=== PATIENT | male | born 1935 | race Caucasian/White ===

== ENCOUNTER 2017-01-17 15:42 | Observation (INO) ==
[2017-01-17] MEDS ORDERED: NITROGLYCERIN 0.4 MG SUBLINGUAL TABLET SL PRN (16:03)
--- OUTSIDE RECORDS SUMMARY | 2017-01-17 16:07 | External Medical Summary | Referral Summary ---
:1935 Author Organization [facility] Address [address] [place] [address] [place] [address] Care Team Providers Name Role Phone Cuong Sultana Primary Care Physician Encounter Date(s): 01/23/15 - 01/23/15 [facility] [address] [place] [address] [place] [address] [place] Discharge Diagnosis: Bilateral sensorineural hearing loss Discharge Disposition: 01-Home or Self Care Attending Physician: Bev Maradiaga Admitting Physician: Bev Maradiaga Vital Signs No data available for this section Problem List Condition Effective Dates Status Health Status Informant Acute arthritis(Confirmed)1 05/13/12 Active Skin Condition(Confirmed) Active Rotator cuff tear, right(Confirmed)2 Active Rotator cuff tear, left(Confirmed)3 05/13/12 Active 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) History of varicella(Confirmed) Active Hypertension(Confirmed) Active ED (erectile dysfunction)(Confirmed)4 Active Hepatitis(Confirmed) Active Irregular heart rhythm(Confirmed) Active Jaundice(Confirmed) Active Lumbar post-laminectomy syndrome Active (disorder)(Confirmed) Cancer of skin(Confirmed) Active Osteoarthritis(Confirmed) Active 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) Active Sciatica(Confirmed)6 Active Spinal stenosis of lumbar region Active (disorder)(Confirmed) Long head bicep Tendonitis(Confirmed)7 05/13/12 Active 1Lt Open RTC repair with augmentation with xenograft, arthroscopic glenohumeral debridement, open bicep tenotomy, open distal clavicle jaeyiovg4ldybbdl cuff ztbttn8Od Open RTC repair with augmentation with xenograft, arthroscopic glenohumeral debridement, open bicep tenotomy, open distal clavicle fvwmenqc4Ttn libido, and low kuqhhrpsloyp5wqptu gqqpdzjvqh7okc back ilyytku7In Open RTC repair with augmentation with xenograft, arthroscopic glenohumeral debridement, open bicep tenotomy, open distal clavicle excision Allergies, Adverse Reactions, Alerts Substance Reaction Severity Status ZOLMitriptan Active Medications aspirin 81 mg oral tablet 1 tabs, Oral, Daily, 0 Refill(s) Start Date: 02/15/14 Status: OrderedMultiple Vitamins oral tablet 1 tabs, Oral, Daily, # 90 tabs, 0 Refill(s) Start Date: 09/30/14 Status: OrderedNorvasc 2.5 mg oral tablet 1 tabs, Oral, Daily, # 90 tabs, 0 Refill(s) Start Date: 02/16/14 Status: OrderedPrograf 1 mg oral capsule 2 caps, Oral, BID, 0 Refill(s) Start Date: 02/15/14 Status: OrderedTums mg, Chewed, Daily, 0 Refill(s) Start Date: 09/30/14 Status: OrderedVitamin D3 400 intl units oral tablet 1 tabs, Oral, Daily, 0 Refill(s) Start Date: 02/15/14 Status: Ordered Results No data available for this section Immunizations Vaccine Date Refusal Reason tetanus/diphth/pertuss (Tdap) adult/adol 12/23/12 hepatitis B adult vaccine 08/19/14 hepatitis B adult vaccine 08/19/14 hepatitis B adult vaccine 04/13/14 hepatitis B adult vaccine 04/13/14 hepatitis B adult vaccine 03/16/14 hepatitis B adult vaccine 03/16/14 hepatitis B adult vaccine 02/16/14 hepatitis B adult vaccine 02/16/14 pneumococcal 13-valent conjugate vaccine 02/16/14 pneumococcal 23-polyvalent vaccine 12/23/12 Procedures Procedure Date Related Diagnosis Body Site Lumbar Caudal 01/26/13 RIGHT L3-4/L5-S1 TRANSFORAMINAL 01/12/13 Lt Open RTC repair with augmentation with 05/13/12 xenograft, arthroscopic glenohumeral debridement, open bicep tenotomy, open distal clavicle excision1 Rotator cuff repair2 06/06/10 Cataract-right 2010 RF Ablation svt 2007 H/O liver transplant3 2001 Appendectomy [facility]H - Inguinal hernia low back Surgery4 Skin cancer 1Left RTC tear, AC arthritis, Long head bicep bigmvsyqug6Jkggqjg cuff tear ( right)3primary sclerosing cywrwluxena0Ixpmuded Social History Social History Type Response Smoking Status Never smoker Assessment and Plan No data available for this section
--- OUTSIDE RECORDS SUMMARY | 2017-01-17 16:07 | External Medical Summary | Referral Summary ---
:1935 Author Organization [facility] Address [address] [place] [address] [place] [address] Care Team Providers Name Role Phone Cuong Sultana Primary Care Physician Encounter VC Date(s): 01/24/16 - 01/24/16 [facility] [place] [address] [place] Discharge Diagnosis: Status post liver transplant Discharge Diagnosis: Osteoarthritis Discharge Diagnosis: Polyosteoarthritis, unspecified Discharge Disposition: 01-Home or Self Care Attending Physician: Cuong Sultana MD Admitting Physician: Cuong Sultana MD Vital Signs Most recent to oldest [Reference Range]: 1 Temperature Tympanic [36.6-38.1 degC] 36.0 degC *LOW* (01/24/16 9:17 AM) Peripheral Pulse Rate [60-100 bpm] 68 bpm (01/24/16 9:17 AM) Respiratory Rate [14-20 br/min] 16 br/min (01/24/16 9:17 AM) Blood Pressure [90-140/60-90 mmHg] 126/76 mmHg (01/24/16 9:17 AM) Problem List Condition Effective Dates Status Health Status Informant Acute arthritis(Confirmed)1 05/13/12 Active Skin Condition(Confirmed) Active Rotator cuff tear, right(Confirmed)2 Active Rotator cuff tear, left(Confirmed)3 05/13/12 Active 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) History of varicella(Confirmed) Active Hypertension(Confirmed) Active ED (erectile dysfunction)(Confirmed)4 Active Hepatitis(Confirmed) Active Irregular heart rhythm(Confirmed) Active Jaundice(Confirmed) Active Lumbar post-laminectomy syndrome Active (disorder)(Confirmed) Lumbar radiculopathy(Confirmed) Active Lumbar spondylosis(Confirmed) Active Cancer of skin(Confirmed) Active Osteoarthritis(Confirmed) Active 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) Active Sciatica(Confirmed)6 Active Spinal stenosis of lumbar region Active (disorder)(Confirmed) Long head bicep Tendonitis(Confirmed)7 05/13/12 Active 1Lt Open RTC repair with augmentation with xenograft, arthroscopic glenohumeral debridement, open bicep tenotomy, open distal clavicle dapdmwgm6lqzveim cuff caubwj1Ff Open RTC repair with augmentation with xenograft, arthroscopic glenohumeral debridement, open bicep tenotomy, open distal clavicle qdcyblke3Tbl libido, and low dfrghlpylaaz5ndplb ujrzculgwd3zlh back qmfrbvg0Az Open RTC repair with augmentation with xenograft, arthroscopic glenohumeral debridement, open bicep tenotomy, open distal clavicle excision Allergies, Adverse Reactions, Alerts Substance Reaction Severity Status ZOLMitriptan Active Medications aspirin 81 mg oral tablet 1 tabs, Oral, Daily, 0 Refill(s) Start Date: 02/15/14 Status: OrderedCalcium 600+D Oral, BID, 0 Refill(s) Start Date: 06/27/15 Status: OrderedMultiple Vitamins oral tablet 1 tabs, Oral, Daily, # 90 tabs, 0 Refill(s) Start Date: 09/30/14 Status: OrderedPrograf 1 mg oral capsule 2 caps, Oral, BID, 0 Refill(s) Start Date: 02/15/14 Status: Ordered Results No data available for this section Immunizations Vaccine Date Refusal Reason tetanus/diphth/pertuss (Tdap) adult/adol 12/23/12 hepatitis B adult vaccine 08/19/14 hepatitis B adult vaccine 08/19/14 hepatitis B adult vaccine 04/13/14 hepatitis B adult vaccine 04/13/14 hepatitis B adult vaccine 03/16/14 hepatitis B adult vaccine 03/16/14 hepatitis B adult vaccine 02/16/14 hepatitis B adult vaccine 02/16/14 influenza virus vaccine, inactivated 01/24/16 pneumococcal 13-valent conjugate vaccine 02/16/14 pneumococcal 23-polyvalent vaccine 12/23/12 Procedures Procedure Date Related Diagnosis Body Site Right L3-4/L4-5 Transforaminal 12/27/15 Right L 4-5/L5-S1 Facet 10/26/15 Lumbar Caudal 01/26/13 RIGHT L3-4/L5-S1 TRANSFORAMINAL 01/12/13 Lt Open RTC repair with augmentation with 05/13/12 xenograft, arthroscopic glenohumeral debridement, open bicep tenotomy, open distal clavicle excision1 Rotator cuff repair2 06/06/10 Cataract-right 2010 RF Ablation svt 2007 H/O liver transplant3 2001 Appendectomy IH - Inguinal hernia low back Surgery4 Skin cancer 1Left RTC tear, AC arthritis, Long head bicep madkdqlzsw2Xyttunu cuff tear ( right)3primary sclerosing jetvufznlng5Hmbonuqy Social History Social History Type Response Smoking Status Never smoker Assessment and Plan Extracted from: Title: Ambulatory Patient Education Author: Cuong Sultana MD Date: 03/29 Musculoskeletal Osteoarthritis Osteoarthritis is a disease that causes soreness and inflammation of a joint. It occurs when the cartilage at the affected joint wears down. Cartilage acts as a cushion, covering the ends of bones where they meet to form a joint. Osteoarthritis is the most common form of arthritis. It often occurs in older people. The joints affected most often by this condition include those in the: Ends of the fingers. Thumbs. Neck. Lower back. Knees. Hips. CAUSES Over time, the cartilage that covers the ends of bones begins to wear away. This causes bone to rub on bone, producing pain and stiffness in the affected joints. RISK FACTORS Certain factors can increase your chances of having osteoarthritis, including: Older age. Excessive body weight. Overuse of joints. Previous joint injury. SIGNS AND SYMPTOMS Pain, swelling, and stiffness in the joint. Over time, the joint may lose its normal shape. Small deposits of bone (osteophytes) may grow on the edges of the joint. Bits of bone or cartilage can break off and float inside the joint space. This may cause more pain and damage. DIAGNOSIS Your health care provider will do a physical exam and ask about your symptoms. Various tests may be ordered, such as: X-rays of the affected joint. Blood tests to rule out other types of arthritis. Additional tests may be used to diagnose your condition. TREATMENT Goals of treatment are to control pain and improve joint function. Treatment plans may include: A prescribed exercise program that allows for rest and joint relief. A weight control plan. Pain relief techniques, such as: Properly applied heat and cold. Electric pulses delivered to nerve endings under the skin ( transcutaneous electrical nerve stimulation [TENS]). Massage. Certain nutritional supplements. Medicines to control pain, such as: Acetaminophen. Nonsteroidal anti-inflammatory drugs (NSAIDs), such as naproxen. Narcotic or central-acting agents, such as tramadol. Corticosteroids. These can be given orally or as an injection. Surgery to reposition the bones and relieve pain (osteotomy) or to remove loose pieces of bone and cartilage. Joint replacement may be needed in advanced states of osteoarthritis. HOME CARE INSTRUCTIONS Take medicines only as directed by your health care provider. Maintain a healthy weight. Follow your health care provider's instructions for weight control. This may include dietary instructions. Exercise as directed. Your health care provider can recommend specific types of exercise. These may include: Strengthening exercises. These are done to strengthen the muscles that support joints affected by arthritis. They can be performed with weights or with exercise bands to add resistance. Aerobic activities. These are exercises, such as brisk walking or low- impact aerobics, that get your heart pumping. Qxgbi-hz-jawavh activities. These keep your joints limber. Balance and agility exercises. These help you maintain daily living skills. Rest your affected joints as directed by your health care provider. Keep all follow-up visits as directed by your health care provider. SEEK MEDICAL CARE IF: Your skin turns red. You develop a rash in addition to your joint pain. You have worsening joint pain. You have a fever along with joint or muscle aches. SEEK IMMEDIATE MEDICAL CARE IF: You have a significant loss of weight or appetite. You have night sweats. FOR MORE INFORMATION National [place] of Arthritis and Musculoskeletal and Skin Diseases: www.niams.nih.gov [employer] [place] on Aging: www.jeannette.nih.gov [employer]: www.rheumatology.org This information is not intended to replace advice given to you by your health care provider. Make sure you discuss any questions you have with your health care provider. Document Released: 03/31/2006 Document Revised: 04/21/2015 Document Reviewed: 12/06/2013 [employer] Interactive Patient Education 2016 [employer] No follow up information was provided. Extracted from: Title: Office Visit Note Author: Cuong Sultana MD Date: 01/24/16 Assessment/Plan 1.Osteoarthritis, Chronic relatively stable no change in current treatment recommended. Polyosteoarthritis, unspecified Ordered: Office Visit Level 4 Est 46280 2.Status post liver transplant Orders are placed for labultrasound and chest x-ray. We'll review those andsend copies to [facility] for him. Continue yearly follow-up here. Call with questions or concerns. Ordered: Office Visit Level 4 Est 40903 Flu shotrecommended and given.
--- OUTSIDE RECORDS SUMMARY | 2017-01-17 16:07 | External Medical Summary | Referral Summary ---
:1935 Author Organization [facility] Address [address] [place] [address] [place] [address] Care Team Providers Name Role Phone Cuong Sultana Primary Care Physician Encounter Date(s): 01/23/15 - 01/23/15 [facility] [address] [place] [address] [place] [address] [place] Discharge Diagnosis: [...] debridement, open bicep tenotomy, open distal clavicle yzwuqsqp9cbzuicb cuff kdvyos9Hi Open RTC repair with augmentation with xenograft, arthroscopic glenohumeral debridement, open bicep tenotomy, open distal clavicle rafrwmuj4Oqw libido, and low iemhuvzpzvpr2qkezk hecaywqpyx5bfo back qbbzhkz6Fj Open RTC repair with augmentation with xenograft, [...] RTC tear, AC arthritis, Long head bicep ydloxwjzqv1Vzdlcsv cuff tear ( right)3primary sclerosing gefujhgxula2Fwnrydyx Social History Social History Type Response Smoking Status Never smoker Assessment and Plan No data available for this section
--- OUTSIDE RECORDS SUMMARY | 2017-01-17 16:07 | External Medical Summary | Referral Summary ---
:1935 Author Organization [facility] Address [address] [place] [address] Care Team Providers Name Role Phone Cuong Sultana Primary Care Physician Encounter VC Date(s): 10/26/15 - 10/26/15 [facility] [address] [place] [address]- [phone] Discharge Diagnosis: Lumbar post-laminectomy syndrome (disorder) Discharge Diagnosis: Lumbar spondylosis Discharge Disposition: 01-Home or Self Care Attending Physician: Ming Zavaleta MD Admitting Physician: Ming Zavaleta MD Vital Signs Most recent to oldest [Reference Range]: 1 Respiratory Rate [14-20 br/min] 14 br/min (10/26/15 1:46 PM) Blood Pressure [90-140/60-90 mmHg] 144/86 mmHg *HI* (10/26/15 1:46 PM) SpO2 100 % (10/26/15 1:46 PM) Problem List Condition Effective Dates Status Health [...] debridement, open bicep tenotomy, open distal clavicle cbkqzysf5muvbayd cuff hyxyok9Zg Open RTC repair with augmentation with xenograft, arthroscopic glenohumeral debridement, open bicep tenotomy, open distal clavicle avghyile0Ibk libido, and low trovrehnwson1yosbr wsabwqjjcy5jjs back vucnrsn9Te Open RTC repair with augmentation with xenograft, arthroscopic glenohumeral debridement, open bicep tenotomy, open distal clavicle excision Allergies, Adverse Reactions, Alerts Substance Reaction Severity Status ZOLMitriptan Active Medications aspirin 81 mg oral tablet 1 tabs, Oral, Daily, 0 Refill(s) Start Date: 02/15/14 Status: OrderedCalcium 600+D Oral, BID, 0 Refill(s) Start Date: 06/27/15 Status: OrderedMetamucil Oral, dly to tid, 0 Refill(s) Start Date: 08/07/15 Status: OrderedMultiple Vitamins oral tablet 1 tabs, Oral, Daily, # 90 tabs, 0 Refill(s) Start Date: 09/30/14 Status: OrderedProbiotic Formula oral capsule See Instructions, 1 caps Oral Daily to TID, 0 Refill(s) Start Date: 08/07/15 Status: OrderedPrograf 1 mg oral capsule 2 [...] Procedures Procedure Date Related Diagnosis Body Site Injection(s), diagnostic or therapeutic agent, 10/26/15 paravertebral facet (zygapophyseal) joint (or nerves innervating that joint) with image guidance (fluoroscopy or CT), lumbar or sacral; second level (List separately in addition to code for primary procedure) Injection(s), diagnostic or therapeutic agent, 10/26/15 paravertebral facet (zygapophyseal) joint (or nerves innervating that joint) with image guidance (fluoroscopy or CT), lumbar or sacral; single level.. Right L 4-5/L5-S1 Facet 10/26/15 Lumbar Caudal 01/26/13 RIGHT L3-4/L5-S1 TRANSFORAMINAL 01/12/13 Lt Open RTC repair with augmentation with 05/13/12 xenograft, arthroscopic glenohumeral debridement, open bicep tenotomy, open distal clavicle excision1 Rotator cuff repair2 06/06/10 Cataract-right 2010 RF Ablation svt 2007 H/O liver transplant3 2001 Appendectomy [facility]H - Inguinal hernia low back Surgery4 Skin cancer 1Left RTC tear, AC arthritis, Long head bicep fgjokdvhlp0Poxmzka cuff tear ( right)3primary sclerosing dnbenbyykyj6Bxfdziii Social History Social History Type Response Smoking Status Never smoker Assessment and Plan No data available for this section
--- OUTSIDE RECORDS SUMMARY | 2017-01-17 16:07 | External Medical Summary | Referral Summary ---
:1935 Author Organization [facility] Address [address] [place] [address] Care Team Providers Name Role Phone Cuong Sultana Primary Care Physician Encounter VC Date(s): 12/19/15 - 12/19/15 [facility] [address] [place] [address]- [phone] Discharge Diagnosis: Lumbar radiculopathy Discharge Diagnosis: Lumbar post-laminectomy syndrome (disorder) Discharge Diagnosis: Spinal stenosis of lumbar region (disorder) Discharge Diagnosis: Lumbar spondylosis Discharge Diagnosis: Lumbar disc herniation Discharge Disposition: 01-Home or Self Care Attending Physician: Reyna Escudero Admitting Physician: Reyna Escudero Vital Signs Most recent to oldest [Reference Range]: 1 Blood Pressure [90-140/60-90 mmHg] 110/62 mmHg (12/19/15 2:29 PM) Problem List Condition Effective Dates Status [...] debridement, open bicep tenotomy, open distal clavicle fgymqdta2vyodrxp cuff vmkahg6Kq Open RTC repair with augmentation with xenograft, arthroscopic glenohumeral debridement, open bicep tenotomy, open distal clavicle iftezfek0Ybh libido, and low comdcxwrhoje1zqgti msendjzqzn5nty back gjbjmfp2Lc Open RTC repair with augmentation with xenograft, [...] Procedure Date Related Diagnosis Body Site Right L 4-5/L5-S1 Facet 10/26/15 Lumbar Caudal 01/26/13 RIGHT L3-4/L5-S1 TRANSFORAMINAL 01/12/13 Lt Open RTC repair with augmentation with 05/13/12 xenograft, arthroscopic glenohumeral debridement, open bicep tenotomy, open distal clavicle excision1 Rotator cuff repair2 06/06/10 Cataract-right 2011 RF Ablation svt 2007 H/O liver transplant3 2001 Appendectomy IH - Inguinal hernia low back Surgery4 Skin cancer 1Left RTC tear, AC arthritis, Long head bicep lmyascalau0Gibckun cuff tear ( right)3primary sclerosing nlkuldlnggl9Uvxbxxmj Social History Social History Type Response Smoking Status Never smoker Assessment and Plan No data available for this section
--- OUTSIDE RECORDS SUMMARY | 2017-01-17 16:07 | External Medical Summary | Referral Summary ---
:1935 Author Organization [facility] Address [address] [place] [address] [place] [address] Care Team Providers Name Role Phone Cuong Sultana Primary Care Physician Encounter VC Date(s): 05/14/16 - 05/14/16 [facility] [place] [address] [place] Discharge Diagnosis: Atrial fibrillation Discharge Diagnosis: Hypertension Discharge Disposition: 01-Home or Self Care Attending Physician: Cuong Sultana MD Admitting Physician: Cuong Sultana MD Vital Signs Most recent to oldest [Reference Range]: 1 Temperature Tympanic [36.6-38.1 degC] 36.2 degC *LOW* (05/14/16 10:12 AM) Peripheral Pulse Rate [60-100 bpm] 56 bpm *LOW* (05/14/16 10:12 AM) Respiratory Rate [14-20 br/min] 18 br/min (05/14/16 10:12 AM) Blood Pressure [90-140/60-90 mmHg] 112/70 mmHg (05/14/16 10:12 AM) Problem List Condition Effective Dates Status [...] debridement, open bicep tenotomy, open distal clavicle rlsvgwey1boecrar cuff vxrphr5Qc Open RTC repair with augmentation with xenograft, arthroscopic glenohumeral debridement, open bicep tenotomy, open distal clavicle xpanhsur8Tql libido, and low uvuqxaickyno6pwvvv besvcjjgda0kyt back iqdxelw5Vx Open RTC repair with augmentation with xenograft, [...] No data available for this section Immunizations Given and Recorded Vaccine Date Status Refusal Reason tetanus/diphth/pertuss (Tdap) adult/adol 12/23/12 Recorded hepatitis B adult vaccine 08/19/14 Given hepatitis B adult vaccine 08/19/14 Given hepatitis B adult vaccine 04/13/14 Given hepatitis B adult vaccine 04/13/14 Given hepatitis B adult vaccine 03/16/14 Given hepatitis B adult vaccine 03/16/14 Given hepatitis B adult vaccine 02/16/14 Given hepatitis B adult vaccine 02/16/14 Recorded influenza virus vaccine, inactivated 01/24/16 Given pneumococcal 13-valent conjugate vaccine 02/16/14 Given pneumococcal 13-valent conjugate vaccine1 12/23/12 Given pneumococcal 23-polyvalent vaccine 12/23/12 Given 1Result Comment: [12/16/2014 Uncharted] Uploaded in Error - CC Procedures Procedure Date Related Diagnosis Body Site [...] RTC tear, AC arthritis, Long head bicep rqyhmaemej8Zzdnkck cuff tear ( right)3primary sclerosing xbmrelqbxxe8Oxmopmph Social History Social History Type Response Smoking Status Never smoker Assessment and Plan Extracted from: Title: Office Visit Note Author: Cuong Sultana MD Date: 05/14/16 Assessment/Plan 1.Atrial fibrillation EKG today shows a normal sinus rhythmwith a mild bradycardia and first- degree AV block. I've recommended a Holter monitorfor further evaluation. We will not proceed with any anticoagulation therapy at this time. He'll let us know how he is feelingor if he has palpitations or irregularities. We'll await the Holter report and make further decisions from there. Ordered: Office Visit Level 3 Est 77624 2.Hypertension Blood pressure appears to be adequately controlled no change in current treatment. Ordered: Office Visit Level 3 Est [id number]
--- OUTSIDE RECORDS SUMMARY | 2017-01-17 16:07 | External Medical Summary | Referral Summary ---
:1935 Author Organization [facility] Address [address] [place] [address] [place] [address] Care Team Providers Name Role Phone Cuong Sultana Primary Care Physician Encounter VC Date(s): 09/30/14 - 09/30/14 [facility] [place] [address] Discharge Diagnosis: Edema Discharge Diagnosis: Leg pain Discharge Disposition: 01-Home or Self Care Attending Physician: Cuong Sultana MD Admitting Physician: Cuong Sultana MD Vital Signs Most recent to oldest [Reference Range]: 1 Peripheral Pulse Rate [60-100 bpm] 72 bpm (09/30/14 3:06 PM) Respiratory Rate [14-20 br/min] 16 br/min (09/30/14 3:06 PM) Blood Pressure [90-140/60-90 mmHg] 110/74 mmHg (09/30/14 3:06 PM) Problem List Condition Effective Dates Status [...] debridement, open bicep tenotomy, open distal clavicle xxjmynwx6fqmqijh cuff otxlxp5Na Open RTC repair with augmentation with xenograft, arthroscopic glenohumeral debridement, open bicep tenotomy, open distal clavicle hmergbzg1Stm libido, and low bovfxfocgurr1pqvbd zrfrpvydpc1ohz back jbiipjc7Xf Open RTC repair with augmentation with xenograft, [...] Refill(s) Start Date: 02/15/14 Status: Ordered Results Chemistry Most recent to oldest [Reference Range]: 1 Total CK [30-200 U/L] 105 U/L (09/30/14 3:28 PM) TSH with Reflex Free T4 [0.35-4.94] 4.24 (09/30/14 3:28 PM) Immunizations Vaccine Date Refusal Reason tetanus/diphth/pertuss (Tdap) [...] RTC tear, AC arthritis, Long head bicep tmsryarhsr6Pwhxrig cuff tear ( right)3primary sclerosing bhmhvdwnkww3Gwsxzfio Social History Social History Type Response Smoking Status Never smoker Assessment and Plan Extracted from: Title: Ambulatory Patient Education Author: Cuong Sultana MD Date: 09/30 Family Medicine Edema Edema is a buildup of fluids. It is most common in the feet, ankles, and legs. This happens more as a person ages. It may affect one or both legs. HOME CARE Raise (elevate ) the legs or ankles above the level of the heart while lying down. Avoid sitting or standing still for a long time. Exercise the legs to help the puffiness (swelling ) go down. A low-salt diet may help lessen the puffiness. Only take medicine as told by your doctor. GET HELP RIGHT AWAY IF: You develop shortness of breath or chest pain. You cannot breathe when you lie down. You have more puffiness that does not go away with treatment. You develop pain or redness in the areas that are puffy. You have a temperature by mouth above 102 F (38.9 C), not controlled by medicine. You gain 03 lb/1.4 kg or more in 1 day or 05 lb/2.3 kg in a week. MAKE SURE YOU: Understand these instructions. Will watch your condition. Will get help right away if you are not doing well or get worse. Document Released: 09/16/2008 Document Revised: 06/22/2012 Document Reviewed: 09/16/2008 [employer] Patient Information 2014 [employer]. No follow up information was provided. Extracted from: Title: Office Visit Note Author: Cuong Sultana MD Date: 09/30/14 Assessment/Plan Edema This edema appears to be dependent. I will do some lab to rule out inflammation of the muscles. See what that shows and make further recommendations from there. Encouraged him to keep his feet up when possible. Ordered: C-Reactive Protein (CRP) Creatine Kinase Office Visit Level 3 Est 53928 Leg pain See above plan. Ordered: Office Visit Level 3 Est 93836
--- OUTSIDE RECORDS SUMMARY | 2017-01-17 16:07 | External Medical Summary | Referral Summary ---
:1935 Author Organization [facility] Address [address] [place] [address] [place] [address] Care Team Providers Name Role Phone Cuong Sultana Primary Care Physician Encounter VC Date(s): 08/19/14 - 08/19/14 [facility] [address] [place] [address]- Discharge Diagnosis: Need for hepatitis B vaccination Discharge Disposition: 01-Home or Self Care Attending Physician: Cuong Sultana MD Admitting Physician: Cuong Sultana MD Vital Signs No data available for this [...] debridement, open bicep tenotomy, open distal clavicle bppwzdtg7arkgsrw cuff qlufbg5Qm Open RTC repair with augmentation with xenograft, arthroscopic glenohumeral debridement, open bicep tenotomy, open distal clavicle auuwgsck6Qai libido, and low gqarkupsqcrx7orbsu tbtyuniypk1hpt back jwqcnmy7Ca Open RTC repair with augmentation with xenograft, [...] RTC tear, AC arthritis, Long head bicep bhwtziylzu5Molsyxy cuff tear ( right)3primary sclerosing vbrvvrwpmfr0Pavyumam Social History Social History Type Response Smoking Status Never smoker Assessment and Plan No data available for this section
--- OUTSIDE RECORDS SUMMARY | 2017-01-17 16:07 | External Medical Summary | Referral Summary ---
:1935 Author Organization [facility] Address [address] [place] [address] [place] [address] Care Team Providers Name Role Phone Cuong Sultana Primary Care Physician Encounter VC Date(s): 08/07/15 - 08/07/15 [facility] [address] [place] [address]- Discharge Diagnosis: Frequent loose stools Discharge Disposition: 01-Home or Self Care Attending Physician: Nicole Chance APRN Admitting Physician: Nicole Chance APRN Vital Signs Most recent to oldest [Reference Range]: 1 Temperature Tympanic [36.6-38.1 degC] 36.1 degC *LOW* (08/07/15 3:32 PM) Peripheral Pulse Rate [60-100 bpm] 68 bpm (08/07/15 3:32 PM) Blood Pressure [90-140/60-90 mmHg] 132/74 mmHg (08/07/15 3:32 PM) Problem List Condition Effective Dates Status [...] debridement, open bicep tenotomy, open distal clavicle qcdxxmoq5mgycufg cuff qwgliz1Uw Open RTC repair with augmentation with xenograft, arthroscopic glenohumeral debridement, open bicep tenotomy, open distal clavicle qbnpncml3Twh libido, and low etylmbdwnvum1crztg fpntruklse0zkz back wxzlvft9Iy Open RTC repair with augmentation with xenograft, [...] RTC tear, AC arthritis, Long head bicep duaqebcgzs5Ewqeprd cuff tear ( right)3primary sclerosing ukvbtavaoem6Ixjhcxtg Social History Social History Type Response Smoking Status Never smoker Assessment and Plan Extracted from: Title: Office Visit Note-frequent Author: Nicole Chance [employer] Date: stools Assessment/Plan Frequent loose stools Recommend patient restart Metamucil and probiotic. He was utilizing both of those 3 times a dayand was finally getting back to normal bowel movements. Discussed with him ifhe was to try to back down to twice a day and then once a dayto see if things continue to be normaland I think that is quite reasonable. If he continues to have loose stools for the next 2-3 w eeks to let me now. He develops any blood in stools or abdominal pain I would like to know. Questions concerns were answered.
--- OUTSIDE RECORDS SUMMARY | 2017-01-17 16:07 | External Medical Summary | Referral Summary ---
:1935 Author Organization [facility] Address [address] [place] [address] [place] [address] Care Team Providers Name Role Phone Cuong Sultana Primary Care Physician Encounter VC Date(s): 05/07/16 - 05/07/16 [facility] [address] [place] [address] [place] [address] [place] Discharge Diagnosis: Biliary cirrhosis, unspecified Discharge Diagnosis: History of ulcerative colitis Discharge Diagnosis: History of liver transplant Discharge Diagnosis: Family history of colon cancer Discharge Disposition: -Home or Self Care Attending Physician: Praveen Garner MD Admitting Physician: Praveen Garner MD Referring Physician: Cuong Sultana MD Vital Signs Most recent to oldest [Reference Range]: 1 Temperature Tympanic [36.6-38.1 degC] 36.7 degC (05/07/16 2:04 PM) Peripheral Pulse Rate [60-100 bpm] 71 bpm (05/07/16 2:04 PM) Respiratory Rate [14-20 br/min] 18 br/min (05/07/16 2:04 PM) Blood Pressure [90-140/60-90 mmHg] 132/74 mmHg (05/07/16 2:04 PM) SpO2 96 % (05/07/16 2:04 PM) Problem List Condition Effective Dates Status [...] debridement, open bicep tenotomy, open distal clavicle qtzqhiif4pisgfuu cuff vbhmdf8Gn Open RTC repair with augmentation with xenograft, arthroscopic glenohumeral debridement, open bicep tenotomy, open distal clavicle ebqpbsmk3Pcl libido, and low wmvcwiszetlg4kpyyq oekkfyuizl4xtg back uutgblu2Jp Open RTC repair with augmentation with xenograft, [...] RTC tear, AC arthritis, Long head bicep bhqixgjtqn1Eofdjna cuff tear ( right)3primary sclerosing yagkfomiueq3Iynqaqqh Social History Social History Type Response Smoking Status Never smoker Assessment and Plan No data available for this section
--- OUTSIDE RECORDS SUMMARY | 2017-01-17 16:07 | External Medical Summary | Referral Summary ---
:1935 Author Organization [facility] Address [address] [place] [address] [place] [address] Care Team Providers Name Role Phone Cuong Sultana Primary Care Physician Encounter VC Date(s): 04/26/16 - 04/26/16 [facility] [place] [address] [place] Discharge Diagnosis: Lumbar post-laminectomy syndrome (disorder) Discharge Diagnosis: Status post liver transplant Discharge Diagnosis: Hypertension Discharge Diagnosis: Osteoarthritis Discharge Disposition: 01-Home or Self Care Attending Physician: Cuong Sultana MD Admitting Physician: Cuong Sultana MD Vital Signs Most recent to oldest [Reference Range]: 1 Temperature Tympanic [36.6-38.1 degC] 36.4 degC *LOW* (04/26/16 2:44 PM) Peripheral Pulse Rate [60-100 bpm] 64 bpm (04/26/16 2:44 PM) Respiratory Rate [14-20 br/min] 20 br/min (04/26/16 2:44 PM) Blood Pressure [90-140/60-90 mmHg] 114/80 mmHg (04/26/16 2:44 PM) Problem List Condition Effective Dates Status [...] debridement, open bicep tenotomy, open distal clavicle giobxpoz4ilklqfp cuff ntqasd7Hq Open RTC repair with augmentation with xenograft, arthroscopic glenohumeral debridement, open bicep tenotomy, open distal clavicle zrwetdgh7Cfy libido, and low klxmczpaadpx2ybhzv rzrlyddtnh4okv back yuaegdc1Lw Open RTC repair with augmentation with xenograft, [...] RTC tear, AC arthritis, Long head bicep wurmcrsjvn2Ldulxzk cuff tear ( right)3primary sclerosing rlefhpttjwz6Pflcdwdr Social History Social History Type Response Smoking Status Never smoker Assessment and Plan Extracted from: Title: Ambulatory Patient Education Author: Cuong Sultana MD Date: 04/26 Preventive Medicine Hypertension Hypertension, commonly called high blood pressure, is when the force of blood pumping through your arteries is too strong. Your arteries are the blood vessels that carry blood from your heart throughout your body. A blood pressure reading consists of a higher number over a lower number, such as 110/72. The higher number (systolic) is the pressure inside your arteries when your heart pumps. The lower n umber (diastolic) is the pressure inside your arteries when your heart relaxes. Ideally you want your blood pressure below 120/80. Hypertension forces your heart to work harder to pump blood. Your arteries may become narrow or stiff. Having untreated or uncontrolled hypertension can cause heart attack, stroke, kidney disease, and other problems. RISK FACTORS Some risk factors for high blood pressure are controllable. Others are not. Risk factors you cannot control include: Race. You may be at higher risk if you are . Age. Risk increases with age. Gender. Men are at higher risk than women before age 45 years. After age 65, women are at higher risk than men. Risk factors you can control include: Not getting enough exercise or physical activity. Being overweight. Getting too much fat, sugar, calories, or salt in your diet. Drinking too much alcohol. SIGNS AND SYMPTOMS Hypertension does not usually cause signs or symptoms. Extremely high blood pressure (hypertensive crisis) may cause headache, anxiety, shortness of breath , and nosebleed. DIAGNOSIS To check if you have hypertension, your health care provider will measure your blood pressure while you are seated, with your arm held at the level of your heart. It should be measured at least twice us ing the same arm. Certain conditions can cause a difference in blood pressure between your right and left arms. A blood pressure reading that is higher than normal on one occasion does not mean that you need treatment. If it is not clear whether you have high blood pressure, you may be asked to return on a different day to have your blood pressure checked again. Or, you may be asked to monitor your blood pressure at home for 1 or more weeks. TREATMENT Treating high blood pressure includes making lifestyle changes and possibly taking medicine. Living a healthy lifestyle can help lower high blood pressure. You may need to change some of your habits. Lifestyle changes may include: Following the DASH diet. This diet is high in fruits, vegetables, and whole grains. It is low in salt, red meat, and added sugars. Keep your sodium intake below 2,300 mg per day. Getting at least 3045 minutes of aerobic exercise at least 4 times per week. Losing weight if necessary. Not smoking. Limiting alcoholic beverages. Learning ways to reduce stress. Your health care provider may prescribe medicine if lifestyle changes are not enough to get your blood pressure under control, and if one of the following is true: You are 1859 years of age and your systolic blood pressure is above 140. You are 60 years of age or older, and your systolic blood pressure is above 150. Your diastolic blood pressure is above 90. You have diabetes, and your systolic blood pressure is over 140 or your diastolic blood pressure is over 90. You have kidney disease and your blood pressure is above 140/90. You have heart disease and your blood pressure is above 140/90. Your personal target blood pressure may vary depending on your medical conditions, your age, and other factors. HOME CARE INSTRUCTIONS Have your blood pressure rechecked as directed by your health care provider. Take medicines only as directed by your health care provider. Follow the directions carefully. Blood pressure medicines must be taken as prescribed. The medicine does not work as well when you sk ip doses. Skipping doses also puts you at risk for problems. Do not smoke. Monitor your blood pressure at home as directed by your health care provider. SEEK MEDICAL CARE IF: You think you are having a reaction to medicines taken. You have recurrent headaches or feel dizzy. You have swelling in your ankles. You have trouble with your vision. SEEK IMMEDIATE MEDICAL CARE IF: You develop a severe headache or confusion. You have unusual weakness, numbness, or feel faint. You have severe chest or abdominal pain. You vomit repeatedly. You have trouble breathing. MAKE SURE YOU: Understand these instructions. Will watch your condition. Will get help right away if you are not doing well or get worse. This information is not intended to replace advice given to you by your health care provider. Make sure you discuss any questions you have with your health care provider. Document Released: 03/31/2006 Document Revised: 08/15/2015 Document Reviewed: 01/21/2014 [employer] Interactive Patient Education 2016 [employer] No follow up information was provided. Extracted from: Title: Office Visit Note Author: Cuong Sultana MD Date: 04/26/16 Assessment/Plan 1.Hypertension Blood pressure appears to be well-controlled no changes are recommended in current medical regimen. Ordered: Office Visit Level 4 Est 41382 2.Status post liver transplant He continues to do well. He keeps in communication with [facility]. We will continue to provide informationrequested as needed. Ordered: Office Visit Level 4 Est 86248 3.Lumbar post-laminectomy syndrome (disorder) He had epidurals late last year and those seem to be doing well right now no changes in current treatment recommended. Ordered: Office Visit Level 4 Est 81891 4.Osteoarthritis Chronic stable no change in current treatment recommended. Ordered: Office Visit Level 4 Est 15321
--- OUTSIDE RECORDS SUMMARY | 2017-01-17 16:07 | External Medical Summary | Referral Summary ---
:1935 Author Organization [facility] Address [address] [place] [address] [place] [address] Care Team Providers Name Role Phone Cuong Sultana Primary Care Physician Encounter VC Date(s): 03/27/15 - 03/27/15 [facility] [address] [place] [address] [place] [address] [place] Discharge Disposition: 01-Home or Self Care Attending [...] debridement, open bicep tenotomy, open distal clavicle gmnmhrer7vjtxfjm cuff dxxvxz5Rr Open RTC repair with augmentation with xenograft, arthroscopic glenohumeral debridement, open bicep tenotomy, open distal clavicle yldfdilg7Cde libido, and low mdvlpccgidoe2snkyz eflxmfyivo1tqm back lceyyob5Bn Open RTC repair with augmentation with xenograft, [...] RTC tear, AC arthritis, Long head bicep ruqonxrlap6Fhrljxf cuff tear ( right)3primary sclerosing cfqxtmgcpom9Oheduhaa Social History Social History Type Response Smoking Status Never smoker Assessment and Plan No data available for this section
--- OUTSIDE RECORDS SUMMARY | 2017-01-17 16:08 | External Medical Summary | Referral Summary ---
:1935 Author Organization [facility] Address [address] [place] [address] Care Team Providers Name Role Phone Cuong Sultana Primary Care Physician Encounter VC Date(s): 10/19/15 - 10/19/15 [facility] [address] [place] [address]- [phone] Discharge Disposition: 01-Home or Self Care Attending Physician: Valeria Singh PA-C Admitting Physician: Valeria Singh PA-C Vital Signs Most recent to oldest [Reference Range]: 1 Temperature Oral [35.8-37.3 degC] 36.5 degC (10/19/15 10:08 AM) Blood Pressure [90-140/60-90 mmHg] 130/76 mmHg (10/19/15 10:08 AM) Problem List Condition Effective Dates Status Health Status Informant Acute arthritis(Confirmed)1 05/13/12 Active Skin Condition(Confirmed) Active Rotator cuff tear, right(Confirmed)2 Active Rotator cuff tear, left(Confirmed)3 05/13/12 Active 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) History of varicella(Confirmed) Active Hypertension(Confirmed) Active ED (erectile dysfunction)(Confirmed)4 Active Hepatitis(Confirmed) Active Irregular heart rhythm(Confirmed) Active Jaundice(Confirmed) Active Lumbar post-laminectomy syndrome Active (disorder)(Confirmed) Lumbar radiculopathy(Confirmed) Active Cancer of skin(Confirmed) Active Osteoarthritis(Confirmed) Active 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) Active Sciatica(Confirmed)6 Active Spinal stenosis of lumbar region Active (disorder)(Confirmed) Long head bicep Tendonitis(Confirmed)7 05/13/12 Active 1Lt Open RTC repair with augmentation with xenograft, arthroscopic glenohumeral debridement, open bicep tenotomy, open distal clavicle zzkfctut1nynwztk cuff owbieg9Er Open RTC repair with augmentation with xenograft, arthroscopic glenohumeral debridement, open bicep tenotomy, open distal clavicle flvsainp1Obr libido, and low giagkgfxlzat5ctzox avexvyimbj6pqp back wolyjpk0Zm Open RTC repair with augmentation with xenograft, [...] RTC tear, AC arthritis, Long head bicep idjtychxur0Hrjpzvm cuff tear ( right)3primary sclerosing tfglgobrgkn2Uctxknfq Social History Social History Type Response Smoking Status Never smoker Assessment and Plan No data available for this section
--- OUTSIDE RECORDS SUMMARY | 2017-01-17 16:08 | External Medical Summary | Referral Summary ---
:1935 Author [facility] Address [address] [place] [address] [place] [address] Care Team Providers Name Role Phone Cuong Sultana Primary Care Physician Encounter VC Date(s): 07/06/15 - 07/06/15 [facility] [address] [place] [address] [place] Discharge Diagnosis: Epigastric pain Discharge Diagnosis: Dysphagia Discharge Disposition: 01-Home or Self Care Attending Physician: Cuong Sultana MD Admitting Physician: Cuong Sultana MD Vital Signs Most recent to oldest [Reference Range]: 1 Temperature Tympanic [36.6-38.1 degC] 36.0 degC *LOW* (07/06/15 3:34 PM) Peripheral Pulse Rate [60-100 bpm] 76 bpm (07/06/15 3:34 PM) Respiratory Rate [14-20 br/min] 16 br/min (07/06/15 3:34 PM) Blood Pressure [90-140/60-90 mmHg] 120/84 mmHg (07/06/15 3:34 PM) Problem List Condition Effective Dates Status [...] debridement, open bicep tenotomy, open distal clavicle bfjoqflj6takhxrp cuff zycswv1Cw Open RTC repair with augmentation with xenograft, arthroscopic glenohumeral debridement, open bicep tenotomy, open distal clavicle icovcyaa5Cyg libido, and low hxswvaxnjepw9pfyru lklobekbdb8egu back drrlxjh1Cx Open RTC repair with augmentation with xenograft, [...] RF Ablation svt 2007 H/O liver transplant3 2002 Appendectomy IH - Inguinal hernia low back Surgery4 Skin cancer 1Left RTC tear, AC arthritis, Long head bicep fughzmfgwz6Xfoqzrh cuff tear ( right)3primary sclerosing jhdbtsgavcm4Kdmbxpft Social History Social History Type Response Smoking Status Never smoker Assessment and Plan Extracted from: Title: Office Visit Note Author: Cuong Sultana MD Date: 07/06/15 Assessment/Plan Dysphagia, Other dysphagia I've recommend having an esophagram looking for both an esophageal strictureas well as hiatal hernia. We'll see what that shows and make further recommendations. Ordered: Office Visit Level 3 Est 33225 Epigastric pain, Epigastric pain See above recommendation. We talked about hiatal herniaand reflux type symptoms. We'll hold off on any medical treatment at this time until we see with the esophagram shows. Encouraged him t o stay upright and avoid stooping or bending over. Ordered: Office Visit Level 3 Est 57427
--- OUTSIDE RECORDS SUMMARY | 2017-01-17 16:08 | External Medical Summary | Continuity of Care Document ---
:1935 Author Organization Via [facility] Allergies Active Description Code Type Severity Reaction Onset Reported/ Identified Relationship Clinical to Patient Status Yes Zomig Drug Adverse 10/02/2009 Aller Reaction gy Yes No Known Food 05/12/2012 Food Aller Allergies gy Yes ZOLMitriptan NKMA N/A N/A 08/11/2013 Medications Medication Packaging Start Date Stop Date Route Dosage Sig 1 philipp 01/08/2017 Topical triamcinolone topical(triamcinolo 1 philipp, ne 0.1% topical Topical, cream) BID, 30 g, 1 Refill(s ) Problems Date Dx Attending Type Code Diagnosis Diagnosed By Coded 09/28/2015 Valeria Singh Final M48.06 Spinal stenosis, lumbar region 09/28/2015 Valeria Singh Final M51.26 Other intervertebral disc displacement, lumbar region 09/28/2015 Valeria Singh Final M54.16 Radiculopathy, lumbar region 09/28/2015 Valeria Singh Final M96.1 Postlaminectomy syndrome, not elsewhere classified 10/19/2015 Valeria Singh Final M47.816 Spondylosis without myelopathy or radiculopathy, lumbar region 10/20/2015 Valeria Singh Final M48.06 Spinal stenosis, lumbar region 10/20/2015 Valeria Singh Final M51.26 Other intervertebral disc displacement, lumbar region 10/20/2015 Valeria Singh Final M96.1 Postlaminectomy syndrome, not elsewhere classified 10/26/2015 Ming Zavaleta Final M47.816 Spondylosis without myelopathy or radiculopathy, lumbar region 10/26/2015 Ming Zavaleta Final M96.1 Postlaminectomy syndrome, not elsewhere classified 12/19/2015 Reyna Escudero Final M47.816 Spondylosis without myelopathy or radiculopathy, lumbar region 12/19/2015 Reyna Escudero Final M48.06 Spinal stenosis, lumbar region 12/19/2015 Reyna Escudero Final M51.26 Other intervertebral disc displacement, lumbar region 12/19/2015 Reyna Escudero Final M54.16 Radiculopathy, lumbar region 12/19/2015 Reyna Escudero Final M96.1 Postlaminectomy syndrome, not elsewhere classified 12/27/2015 Ming Zavaleta Final M48.06 Spinal stenosis, lumbar region 12/27/2015 Ming Zavaleta Final M54.16 Radiculopathy, lumbar region 12/27/2015 Ming Zavaleta Final M96.1 Postlaminectomy syndrome, not elsewhere classified 01/24/2016 Benson, Final M15.9 Polyosteoarthritis, Cuong K unspecified 01/24/2016 Benson, Final M19.90 Unspecified Cuong K osteoarthritis, unspecified site 01/24/2016 Benson, Final Z94.4 Liver transplant Cuong K status 01/24/2016 [place], Final M15.9 Polyosteoarthritis, Cuong K unspecified 04/26/2016 Benson, Final I10 Essential (primary) Cuong K hypertension 04/26/2016 Benson, Final M96.1 Postlaminectomy Cuong K syndrome, not elsewhere classified 04/26/2016 Benson, Final Z94.4 Liver transplant Cuong K status 04/26/2016 Benson, Final M15.9 Polyosteoarthritis, Cuong K unspecified 05/07/2016 Praveen Quinones Final Z80.0 Family history of M malignant neoplasm of digestive organs 05/07/2016 Praveen Quinones Final Z87.19 Personal history of M other diseases of the digestive system 05/07/2016 Praveen Quinones Final Z94.4 Liver transplant M status 05/07/2016 Praveen Quinones Final K74.5 Biliary cirrhosis, M unspecified 05/14/2016 Benson, Final I10 Essential (primary) Cuong K hypertension 05/14/2016 Benson, Final I48.91 Unspecified atrial Cuong K fibrillation 06/06/2016 Benson, Final J20.8 Acute bronchitis due Cuong K to other specified organisms 06/11/2016 Nicole Chance Final G57.11 Meralgia D paresthetica, right lower limb 08/05/2016 Benson, Final M15.9 Polyosteoarthritis, Cuong Schmid unspecified 08/05/2016 Benson, Final M47.816 Spondylosis without Cuong Schmid myelopathy or radiculopathy, lumbar region 08/05/2016 Benson, Final M96.1 Postlaminectomy Cuong Schmid syndrome, not elsewhere classified 08/28/2016 Benson, Final M25.552 Pain in left hip Cuong Schmid 11/07/2016 Benson, Final M48.06 Spinal stenosis, Cuong K lumbar region 11/07/2016 Benson, Final M54.16 Radiculopathy, lumbar Cuong Binu region 12/23/2016 Benson, Final K20.9 Esophagitis, Cuong Schmid unspecified Procedures Code Description Performed By Performed On Radiologic 09/28/2015 22926 examination, spine, lumbosacral; 2 or 3 views.. Office or 09/28/2015 other outpatient visit for the evaluation and management of an established patient, which requires at least 2 of these 3 escobar components: An expanded problem focused history; An expanded prob Office or 10/19/2015 other outpatient visit for the evaluation and management of an established patient, which requires at least 2 of these 3 escobar components: A detailed history; A detailed examination; Medical d 10/26/2015 21055 Injection(s), diagnostic or therapeutic agent, paravertebral facet (zygapophyseal) joint (or nerves innervating that joint) with image guidance (fluoroscopy or CT), lumbar or sacral; single level.. 10/26/2015 36991 Injection(s), diagnostic or therapeutic agent, paravertebral facet (zygapophyseal) joint (or nerves innervating that joint) with image guidance (fluoroscopy or CT), lumbar or sacral; second level (Lis Office or 12/19/201545202 other outpatient visit for the evaluation and management of an established patient, which requires at least 2 of these 3 escobar components: A detailed history; A detailed examination; Medical d 12/27/2015 48339 Injection(s), anesthetic agent and/or steroid, transforaminal epidural, with imaging guidance (fluoroscopy or CT); lumbar or sacral, single level 12/27/2015 14486 Injection(s), anesthetic agent and/or steroid, transforaminal epidural, with imaging guidance (fluoroscopy or CT); lumbar or sacral, each additional level (List separately in addition to code for prim Office or 01/24/2016 04850 other outpatient visit for the evaluation and management of an established patient, which requires at least 2 of these 3 escobar components: A detailed history; A detailed examination; Medical d Office or 04/26/2016 26327 other outpatient visit for the evaluation and management of an established patient, which requires at least 2 of these 3 escobar components: A detailed history; A detailed examination; Medical d Office or 05/07/2016 56640 other outpatient visit for the evaluation and management of a new patient, which requires these 3 escobar components: A comprehensive history; A comprehensive examination; Medical decision makin 05/14/2016 63715 Electrocardiogram, routine ECG with at least 12 leads; with interpretation and report Office or 05/14/201696285 other outpatient visit for the evaluation and management of an established patient, which requires at least 2 of these 3 escobar components: An expanded problem focused history; An expanded prob External 05/20/2016 34934 electrocardiographic recording up to 48 hours by continuous rhythm recording and storage; recording (includes connection, recording, and disconnection) External 05/20/2016 04217 electrocardiographic recording up to 48 hours by continuous rhythm recording and storage; scanning analysis with report External 05/20/2016 45700 electrocardiographic recording up to 48 hours by continuous rhythm recording and storage; review and interpretation by a physician or other qualified health dialysis patient care technician Office or 06/06/201616060 other outpatient visit for the evaluation and management of an established patient, which requires at least 2 of these 3 escobar components: An expanded problem focused history; An expanded prob Office or 06/11/201616156 other outpatient visit for the evaluation and management of an established patient, which requires at least 2 of these 3 escobar components: An expanded problem focused history; An expanded prob Office or 08/05/2016 48231 other outpatient visit for the evaluation and management of an established patient, which requires at least 2 of these 3 escobar components: An expanded problem focused history; An expanded prob Radiologic 08/28/2016 01883 examination, pelvis; 1 or 2 views Office or 08/28/201621117 other outpatient visit for the evaluation and management of an established patient, which requires at least 2 of these 3 escobar components: An expanded problem focused history; An expanded prob Office or 11/07/2016 82611 other outpatient visit for the evaluation and management of an established patient, which requires at least 2 of these 3 escobar components: An expanded problem focused history; An expanded prob Office or 12/23/2016 36734 other outpatient visit for the evaluation and management of an established patient, which requires at least 2 of these 3 escobar components: An expanded problem focused history; An expanded prob Results Encounters ACCT No. Visit Discharge Status Pt. Type Provider Facility Loc./Unit Complaint Date/Time [id number] 05/13/2012 05/15/2012 DIS Inpatient Head Via [facility] 74 05:00:00 11:12:00 Malina GUPTA [facility] [id number] 03/15/2013 03/15/2013 CLS Outpatien 08:45:00 23:59:59 t [id number] 03/08/2013 03/08/2013 CLS Outpatien 08:14:00 23:59:59 t [id number] 01/08/2017 01/08/2017 DIS Outpatikrys Sultana, Via [facility] New FM wme 648 08:45:00 23:59:00 t Cuong [facility] [id number] 12/23/2016 12/23/2016 DIS Outpatikrys Sultana, Via [facility] New FM SORE 185 13:45:00 23:59:00 t Cuong [facility] ESOPHAGUS Clinic CANT SWALLOW WARM LIQUIDS [id number] 11/07/2016 11/07/2016 DIS Mitchell Sultana, Via [facility] New FM lower body 802 14:58:00 23:59:00 kiel [facility] weak. pain Clinic [id number] 08/28/2016 08/28/2016 DIS Mitchell Sultana, Via [facility] New FM SORE MUSCLE 423 14:20:00 23:59:00 kiel Radford LT HIP NO Clinic KNOWN INJ X 2-3 MOS [id number] 08/05/2016 08/05/2016 DIS Outpatikrys Sultana, Via [facility] New FM BACK PAIN NO 461 16:27:00 23:59:00 kiel Radford KNOWN INJ X2 Clinic MOS [id number] 06/11/2016 06/11/2016 DIS Outpatien Meron Via [facility] New FM PAINFUL LFT 196 10:04:00 23:59:00 Nicole dyson HIP Clinic [id number] 06/06/2016 06/06/2016 DIS Outpatien Benson, Via [facility] New FM bronchitis 500 09:06:00 23:59:00 t [facility]ong [facility] [id number] 05/20/2016 05/20/2016 DIS Outpatien Benson, Via [facility] HOLTER AFIB 496 00:01:00 23:59:00 t Cuong [facility]ford Card BRADYCARDIA Clinic BENSON [id number] 05/14/2016 05/14/2016 DIS Outpatien Benson, Via [facility] New FM bradycardia 606 10:01:00 23:59:00 kiel Radford poss afib Clinic [id number] 05/14/2016 05/14/2016 DIS Outpatien Benson, Via [facility] A- FIB; 676 00:01:00 23:59:00 kiel Rafdord Card I48.91 Clinic [id number] 05/07/2016 05/07/2016 DIS Outpatien Joni Via [facility] New consult for 949 13:57:00 23:59:00 Praveen dyson Surg colonoscopy Clinic [facility] visit [id number] 04/26/2016 04/26/2016 DIS Outpatien Benson, Via [facility] New FM WME 382 14:37:00 23:59:00 kiel [facility] [id number] 01/24/2016 01/24/2016 DIS Outpatien Benson, Via [facility] New FM TCPA YRLY 838 09:09:00 23:59:00 kiel Radford EXAM IS Clinic LIVER TRANSPLANT [id number] 12/27/2015 12/27/2015 DIS Outpatien Meghann, Via [facility] RT L3-4/ L4-5 968 13:41:00 23:59:00 kiel Radford PainMgt TRANSF, Clinic L/ASA-7 DAYS/NRN/NPN [id number] 12/19/2015 12/19/2015 DIS Outpatien Kena, Via [facility] TCPA RCK 2 653 14:02:00 23:59:00 kile Radford PainMgt MO LUMBAR, Clinic NRN [id number] 10/26/2015 10/26/2015 DIS Outpatien Meghann, Via [facility] RT 623 13:33:00 23:59:00 kiel Radford PainMgt L4-5/L5-S1 Clinic FACET, L/NRN/NPN [id number] 10/19/2015 10/19/2015 DIS Outpatien Pahls, Via [facility] FC RCK 869 09:42:00 23:59:00 t Valeria [facility] PainMgt L/MRI/XRAYS/ Clinic NRN [id number] 09/28/2015 09/28/2015 DIS Outpatien Pahls, Via [facility] RCK LBP /NRN 701 13:02:00 23:59:00 t Valeria [facility] PainMgt Clinic [id number] 08/07/2015 08/07/2015 DIS Outpatien Meron Via [facility] New FM bowel 029 15:15:00 23:59:00 Nicole dyson problems Clinic [id number] 07/06/2015 07/06/2015 DIS Outpatien Benson, Via [facility] New FM hernia pain 175 15:19:00 23:59:00 t [facility]ong [facility] [id number] 07/03/2015 07/03/2015 DIS Outpatien Meron Via [facility] New FM DIARRHEA 608 08:34:00 23:59:00 Nicole dyson Clinic [id number] 06/27/2015 06/27/2015 DIS Outpatien Meron Via [facility] FM diahrea 279 12:58:00 23:59:00 Nicole dyson Malina Clinic [id number] 03/27/2015 03/27/2015 DIS Outpatien Hiren, Via [facility] New HE HAC MAYBE 409 13:53:00 23:59:00 t Bev [facility] Audio NEW AIDS Clinic [id number] 01/23/2015 01/23/2015 DIS Outpatien Hiren, Via [facility] New HEARING AID 018 12:24:00 23:59:00 t Bev [facility] Audio NOT WORKING Clinic [id number] 09/30/2014 09/30/2014 DIS Outpatien Benson, Via [facility] New FM leg and some 483 14:58:00 23:59:00 t Cuong [facility] feet Clinic swelling [id number] 05/06/2014 05/06/2014 DIS Outpatien Benson, Via [facility] New FM ER 04/29/14 999 09:04:00 23:59:00 kiel Radford RECHECK Clinic [id number] 04/13/2014 04/13/2014 DIS Outpatien Benson, Via [facility] New FM HEP B SHOT 870 09:39:00 23:59:00 t Cuong [facility] [id number] 03/16/2014 03/16/2014 DIS Outjadiel Sultana, Via [facility] 2 HEP B SHOT 912 08:59:00 23:59:00 t Cuong [facility] [id number] 01/09/2017 Document [id number] 05:18:48 Registrat ion [id number] 08/19/2014 Document 607 13:54:00 Registrat ion
--- OUTSIDE RECORDS SUMMARY | 2017-01-17 16:08 | External Medical Summary | Referral Summary ---
:1935 Author Organization [facility] Address [address] [place] [address] [place] [address] Care Team Providers Name Role Phone Cuong Sultana Primary Care Physician Encounter VC Date(s): 07/03/15 - 07/03/15 [facility] [place] [address] Discharge Diagnosis: Frequent loose stools Discharge Diagnosis: H/O liver transplant Discharge Diagnosis: Mild renal insufficiency Discharge Diagnosis: Lower abdominal pain Discharge Disposition: 01-Home or Self Care Attending Physician: Nicole Chance APRN Admitting Physician: Nicole Chance APRN Vital Signs Most recent to oldest [Reference Range]: 1 Temperature Tympanic [36.6-38.1 degC] 36.0 degC *LOW* (07/03/15 8:38 AM) Peripheral Pulse Rate [60-100 bpm] 80 bpm (07/03/15 8:38 AM) Respiratory Rate [14-20 br/min] 18 br/min (07/03/15 8:38 AM) Blood Pressure [90-140/60-90 mmHg] 148/90 mmHg *HI* (07/03/15 8:38 AM) Problem List Condition Effective Dates Status [...] debridement, open bicep tenotomy, open distal clavicle duuupmsg9mvnirsu cuff cuenmc4Hu Open RTC repair with augmentation with xenograft, arthroscopic glenohumeral debridement, open bicep tenotomy, open distal clavicle gjuikknp3Owd libido, and low chvsoyfwrnbk2arqmf jyqzjmneww2rwx back brthqnt3Pk Open RTC repair with augmentation with xenograft, [...] Refill(s) Start Date: 02/15/14 Status: Ordered Results Hematology Most recent to oldest [Reference Range]: 1 WBC [5.0-10.0 10*3/uL] 5.8 10*3/uL (07/03/15 9:07 AM) RBC [3.70-5.20] 4.39 (07/03/15 9:07 AM) Hgb [12.0-16.0 gm/dL] 14.2 gm/dL (07/03/15 9:07 AM) Hct [40.0-54.0 %] 41.0 % (07/03/15 9:07 AM) MCV [80.0-96.0 fL] 93.4 fL (07/03/15 9:07 AM) MCH [26.0-34.0 pg] 32.3 pg (07/03/15 9:07 AM) MCHC [32.0-36.0 gm/dL] 34.6 gm/dL (07/03/15 9:07 AM) RDW [0.0-14.5 %] 12.8 % (07/03/15 9:07 AM) Platelet [150-400 10*3/uL] 186 10*3/uL (07/03/15 9:07 AM) MPV [8.8-14.8 fL] 10.4 fL (07/03/15 9:07 AM) Neutrophils [50-70 %] 64 % (07/03/15 9:07 AM) Lymphocytes [20-40 %] 20 % (07/03/15 9:07 AM) Monocytes [4-8 %] 7 % (07/03/15 9:07 AM) Eosinophils [0-6 %] 9 % *HI* (07/03/15 9:07 AM) Basophils [0-2 %] 1 % (07/03/15 9:07 AM) Neutro Absolute [2.50-7.00 10*3] 3.67 10*3 (07/03/15 9:07 AM) Lymph Absolute [1.00-4.00 10*3] 1.16 10*3 (07/03/15 9:07 AM) [place] Absolute [0.20-0.80 10*3] 0.38 10*3 (07/03/15 9:07 AM) Eos Absolute [0.00-0.60 10*3] 0.54 10*3 (07/03/15 9:07 AM) Baso Absolute [0.00-0.30] 0.03 (07/03/15 9:07 AM) Chemistry Most recent to oldest [Reference Range]: 1 Sodium Venous [136-145 mmol/L] 140 mmol/L (07/03/15 9:07 AM) Potassium Venous [3.5-5.1 mmol/L] 4.5 mmol/L 1 (07/03/15 9:07 AM) Calcium Ionized Venous [1.10-1.30 mmol/L] 1.25 mmol/L (07/03/15 9:07 AM) Total CO2 Venous [24-29 mmol/L] 22 mmol/L *LOW* (07/03/15 9:07 AM) Glucose Venous [70-100 mg/dL] 97 mg/dL (07/03/15 9:07 AM) BUN Venous [8-26] 27 *HI* (07/03/15 9:07 AM) Creatinine Venous [0.7-1.3 mg/dL] 1.2 mg/dL (07/03/15 9:07 AM) Venous CL [98-109 mmol/L] 101 mmol/L (07/03/15 9:07 AM) 1Result Comment: This test was performed on a whole blood specimen. The presence or absence of hemolysis cannot be assessed. Hemolysis can falsely elevate potassium levels. Normals are for venous specimens only.Therapeutic Drug Monitoring Most recent to oldest [Reference Range]: 1 Tacrolimus (Prograf) Level [5.0-15.0 ng/mL] 9.3 ng/mL 1 (07/03/15 9:07 AM) 1Result Comment: Tacrolimus interpretation: Therapeutic Range: 5-15 Toxic Range: >20 NDT: No Detectable Level Immunizations Vaccine Date Refusal Reason tetanus/diphth/pertuss (Tdap) [...] RTC tear, AC arthritis, Long head bicep ilptbgnebf6Tvihfrv cuff tear ( right)3primary sclerosing swrwepmymae2Xrcoimzn Social History Social History Type Response Smoking Status Never smoker Assessment and Plan Extracted from: Title: Clinical Document Author: Nicole Chnace APRN Date: 07/03/15 Assessment/Plan 1.Lower abdominal pain Lab and x-ray completed today. No significant findingsnoted. KUB does revealmoderatestool in the right colon. CBC and chemistry are acceptable. Creatinine is normalizing. Prograf level pending. 2.Mild renal insufficiency Frequent loose stools Recommend he increase the fiber in his diet. May utilize Metamucil or vfxo-nhq-tyibriy fiber supplement per package instructions. Continue probiotic and culture L. If symptoms do not improve over the next1-2 weeks to please let me know. May need to consider CT scan of the abdomen and pelvis, referral to Dr. Garner for repeat colonoscopy orgastroenterology referral. If anytime he develops worsening abdominal pain, blood in the stools, fever or increasedstools he needs to let us know. Ordered: XR Abdomen Complete w/ Decub/Erect H/O liver transplant Ordered: Tacrolimus Level
--- OUTSIDE RECORDS SUMMARY | 2017-01-17 16:08 | External Medical Summary | Referral Summary ---
:1935 Author Organization [facility] Address [address] [place] [address] [place] [address] Care Team Providers Name Role Phone Cuong Sultana Primary Care Physician Encounter VC Date(s): 06/06/16 - 06/06/16 [facility] [address] [place] [address] [place] Discharge Diagnosis: Acute bronchitis Discharge Disposition: 01-Home or Self Care Attending Physician: Cuong Sultana MD Admitting Physician: Cuong Sultana MD Vital Signs Most recent to oldest [Reference Range]: 1 Temperature Tympanic [36.6-38.1 degC] 36.5 degC *LOW* (06/06/16 9:12 AM) Peripheral Pulse Rate [60-100 bpm] 72 bpm (06/06/16 9:12 AM) Blood Pressure [90-140/60-90 mmHg] 134/80 mmHg (06/06/16 9:12 AM) Problem List Condition Effective Dates Status [...] debridement, open bicep tenotomy, open distal clavicle jdzggice8fcsyklr cuff vaypzz8Ys Open RTC repair with augmentation with xenograft, arthroscopic glenohumeral debridement, open bicep tenotomy, open distal clavicle xhdhrcmd9Pwb libido, and low pgrtmrhgtauj7ufeyz fdyxumrhww4lkw back hctjhwt9Xb Open RTC repair with augmentation with xenograft, arthroscopic glenohumeral debridement, open bicep tenotomy, open distal clavicle excision Allergies, Adverse Reactions, Alerts Substance Reaction Severity Status ZOLMitriptan Active Medications aspirin 81 mg oral tablet 1 tabs, Oral, Daily, 0 Refill(s) Start Date: 02/15/14 Status: OrderedCalcium 600+D Oral, BID, 0 Refill(s) Start Date: 06/27/15 Status: OrderedCipro Oral, q12hr, 0 Refill(s) Start Date: 06/06/16 Status: OrderedMultiple Vitamins oral tablet 1 tabs, Oral, Daily, # 90 tabs, 0 Refill(s) Start Date: 09/30/14 Status: OrderedPradaxa 75 mg, Oral, BID, 0 Refill(s) Start Date: 06/06/16 Status: OrderedPrograf 1 mg oral capsule 2 [...] Procedures Procedure Date Related Diagnosis Body Site Colonoscopy normal1 05/13/16 Right L3-4/L4-5 Transforaminal 12/27/15 Right L 4-5/L5-S1 Facet 10/26/15 Lumbar Caudal 01/26/13 RIGHT L3-4/L5-S1 TRANSFORAMINAL 01/12/13 Lt Open RTC repair with augmentation with 05/13/12 xenograft, arthroscopic glenohumeral debridement, open bicep tenotomy, open distal clavicle excision2 Rotator cuff repair3 06/06/10 Cataract-right 2010 RF Ablation svt 2007 H/O liver transplant4 2001 Appendectomy IH - Inguinal hernia low back Surgery5 Skin cancer 1Random biopsies performed at the request of [facility] due to history of ulcerative colitis and hishistory of liver transplant requiring the antirejection medications. [facility] requests repeat colonoscopy mwptvubu9Ejcj RTC tear, AC arthritis, Long head bicep togfpljfor5Fkmzszs cuff tear (right)4primary sclerosing usoxzcvcywz1Ydnkszoq Social History Social History Type Response Smoking Status Never smoker Assessment and Plan Extracted from: Title: Office Visit Note Author: Cuong Sultana MD Date: 06/06/16 Assessment/Plan 1.Acute bronchitis I recommend a round of Zithromax as a Z-Rodney. Using some over the counter Mucinex may be beneficial. Increase fluid intake would be beneficial. His symptoms persist or worsen or further problems develop follow-up.
--- OUTSIDE RECORDS SUMMARY | 2017-01-17 16:08 | External Medical Summary | Referral Summary ---
:1935 Author Organization [facility] Address [address] [place] [address] [place] [address] Care Team Providers Name Role Phone Cuong Sultana Primary Care Physician Encounter VC Date(s): 06/27/15 - 06/27/15 [facility] [address] [place] [id number] Discharge Diagnosis: Frequent loose stools Discharge Diagnosis: Abnormal TSH Discharge Disposition: 01-Home or Self Care Attending Physician: Nicole Chance APRN Admitting Physician: Nicole Chance APRN Vital Signs Most recent to oldest [Reference Range]: 1 Temperature Tympanic [36.6-38.1 degC] 36.0 degC *LOW* (06/27/15 1:04 PM) Peripheral Pulse Rate [60-100 bpm] 64 bpm (06/27/15 1:04 PM) Respiratory Rate [14-20 br/min] 16 br/min (06/27/15 1:04 PM) Blood Pressure [90-140/60-90 mmHg] 132/84 mmHg (06/27/15 1:04 PM) Problem List Condition Effective Dates Status [...] debridement, open bicep tenotomy, open distal clavicle [id number] cuff [id number] Open RTC repair with augmentation with xenograft, arthroscopic glenohumeral debridement, open bicep tenotomy, open distal clavicle nouomcxi4Jef libido, and low auxislkeovex4vitop cayqlalllq4chv back slnwotp2Dr Open RTC repair with augmentation with xenograft, [...] oldest [Reference Range]: 1 WBC [5.0-10.0 10*3/uL] 4.0 10*3/uL *LOW* (06/27/15 1:29 PM) RBC [3.70-5.20] 4.18 (06/27/15 1:29 PM) Hgb [12.0-16.0 gm/dL] 13.5 gm/dL (06/27/15 1:29 PM) Hct [40.0-54.0 %] 39.2 % *LOW* (06/27/15 1:29 PM) MCV [80.0-96.0 fL] 93.8 fL (06/27/15 1:29 PM) MCH [26.0-34.0 pg] 32.3 pg (06/27/15 1:29 PM) MCHC [32.0-36.0 gm/dL] 34.4 gm/dL (06/27/15 1:29 PM) RDW [0.0-14.5 %] 12.6 % (06/27/15 1:29 PM) Platelet [150-400 10*3/uL] 173 10*3/uL (06/27/15 1:29 PM) MPV [8.8-14.8 fL] 10.4 fL (06/27/15 1:29 PM) Neutrophils [50-70 %] 54 % (06/27/15 1:29 PM) Lymphocytes [20-40 %] 28 % (06/27/15 1:29 PM) Monocytes [4-8 %] 10 % *HI* (06/27/15 1:29 PM) Eosinophils [0-6 %] 9 % *HI* (06/27/15 1:29 PM) Basophils [0-2 %] 0 % (06/27/15 1:29 PM) Neutro Absolute [2.50-7.00 10*3] 2.13 10*3 *LOW* (06/27/15 1:29 PM) Lymph Absolute [1.00-4.00 10*3] 1.11 10*3 (06/27/15 1:29 PM) [place]ble Absolute [0.20-0.80 10*3] 0.39 10*3 (06/27/15 1:29 PM) Eos Absolute [0.00-0.60 10*3] 0.34 10*3 (06/27/15 1:29 PM) Baso Absolute [0.00-0.30] 0.01 (06/27/15 1:29 PM) Chemistry Most recent to oldest [Reference Range]: 1 Sodium Lvl [135-144 mEq/L] 139 mEq/L (06/27/15 1:29 PM) Potassium Lvl [3.5-5.2 mEq/L] 4.9 mEq/L (06/27/15 1:29 PM) Chloride [99-111 mEq/L] 106 mEq/L (06/27/15 1:29 PM) CO2 [23-31 mEq/L] 28 mEq/L (06/27/15 1:29 PM) AGAP [3-20] 5 (06/27/15 1:29 PM) BUN [8-26 mg/dL] 25 mg/dL (06/27/15 1:29 PM) Glucose Lvl [70-99 mg/dL] 144 mg/dL *HI* (06/27/15 1:29 PM) Creatinine Lvl [0.72-1.25 mg/dL] 1.49 mg/dL *HI* (06/27/15 1:29 PM) eGFR [>60 mL/min] 45 mL/min 1 *ABN* (06/27/15 1:29 PM) Calcium Lvl [8.9-10.5 mg/dL] 9.8 mg/dL (06/27/15 1:29 PM) Albumin Lvl [3.4-4.8 gm/dL] 4.1 gm/dL (06/27/15 1:29 PM) Total Protein [6.2-8.1 gm/dL] 6.7 gm/dL (06/27/15 1:29 PM) Globulin [1.8-4.0 gm/dL] 2.6 gm/dL (06/27/15 1:29 PM) ALT [0-55 U/L] 48 U/L (06/27/15 1:29 PM) AST [5-34 U/L] 48 U/L *HI* (06/27/15 1:29 PM) Alk Phos [40-150 U/L] 295 U/L *HI* (06/27/15 1:29 PM) Bili Total [0.2-1.2 mg/dL] 0.9 mg/dL (06/27/15 1:29 PM) TSH with Reflex Free T4 [0.35-4.94] 3.39 (06/27/15 1:29 PM) 1Result Comment: Multiply eGFR results by 1.21 for race. Immunizations Vaccine Date Refusal Reason tetanus/diphth/pertuss (Tdap) [...] RTC tear, AC arthritis, Long head bicep dhrvbxgjuc5Tnraeuq cuff tear ( right)3primary sclerosing pghbjivlupa1Vcnsjxxr Social History Social History Type Response Smoking Status Never smoker Assessment and Plan Extracted from: Title: Office Visit Note-diarrhea Author: Nicole Chance APRN Date: Assessment/Plan 1.Frequent loose stools KUB obtained and reviewed. No acute findings. Recommend patienttakeno further Imodium. Stool culture and labs as ordered. We'll notify him of those results. Discussed with him if he develops any fever, worsening abdominal pain or blood in his stools he needs to call the office or go to the ER after hours. Questions and concerns were answered. Ordered: C. Difficile toxin B by PCR C. Difficile toxin B by PCR Comprehensive Metabolic Panel Fecal Leucocyte Stain Occult Blood X 3, Stool Ova and Parasites Stool Culture w/ Campy and Shigatoxin TSH with Reflex Free T4 2.Abnormal TSH Ordered: TSH with Reflex Free T4
--- OUTSIDE RECORDS SUMMARY | 2017-01-17 16:08 | External Medical Summary | Referral Summary ---
:1935 Author Organization [facility] Address [address] [place] [address] Care Team Providers Name Role Phone Cuong Sultana Primary Care Physician Encounter VC Date(s): 12/27/15 - 12/27/15 [facility] [address] [place] [address]- [phone] Discharge Diagnosis: Lumbar radiculopathy Discharge Diagnosis: Lumbar post-laminectomy syndrome (disorder) Discharge Diagnosis: Spinal stenosis of lumbar region (disorder) Discharge Disposition: 01-Home or Self Care Attending Physician: Ming Zavaleta MD Admitting Physician: Ming Zavaleta MD Referring Physician: Cuong Sultana MD Vital Signs Most recent to oldest [Reference Range]: 1 Apical Heart Rate [60-100 bpm] 64 bpm (12/27/15 1:57 PM) Respiratory Rate [14-20 br/min] 16 br/min (12/27/15 1:57 PM) Blood Pressure [90-140/60-90 mmHg] 151/84 mmHg *HI* (12/27/15 1:57 PM) SpO2 97 % (12/27/15 1:57 PM) Problem List Condition Effective Dates Status [...] debridement, open bicep tenotomy, open distal clavicle cjnqpooz6fwmuaqv cuff hfwmhl4Qt Open RTC repair with augmentation with xenograft, arthroscopic glenohumeral debridement, open bicep tenotomy, open distal clavicle wzeswtka9Xwv libido, and low xoakaicqsvki5bqnbx orzxnbbzor0xbw back dtietnl9Ms Open RTC repair with augmentation with xenograft, [...] Procedure Date Related Diagnosis Body Site Injection(s), anesthetic agent and/or steroid, 12/27/15 transforaminal epidural, with imaging guidance (fluoroscopy or CT); lumbar or sacral, each additional level (List separately in addition to code for primary procedure)..... Injection(s), anesthetic agent and/or steroid, 12/27/15 transforaminal epidural, with imaging guidance (fluoroscopy or CT); lumbar or sacral, single level Right L3-4/L4-5 Transforaminal 12/27/15 Right L 4-5/L5-S1 [...] RTC tear, AC arthritis, Long head bicep fgttfoekdl3Kdsagng cuff tear ( right)3primary sclerosing proftsuegeu6Dqcuincb Social History Social History Type Response Smoking Status Never smoker Assessment and Plan Extracted from: Title: Ambulatory Patient Education Author: Brianne Muniz RN Date: 12/27/15 Procedures Epidural Steroid Injection An epidural steroid injection is given to relieve pain in your neck, back, or legs that is caused by the irritation or swelling of a nerve root. This procedure involves injecting a steroid and numbing m edicine (anesthetic) into the epidural space. The epidural space is the space between the outer covering of your spinal cord and the bones that form your backbone (vertebra). LET YOUR HEALTH CARE PROVIDER KNOW ABOUT: Any allergies you have. All medicines you are taking, including vitamins, herbs, eye drops, creams, and bbed-iah-ltjwcbn medicines such as aspirin. Previous problems you or members of your family have had with the use of anesthetics. Any blood disorders or blood clotting disorders you have. Previous surgeries you have had. Medical conditions you have. RISKS AND COMPLICATIONS Generally, this is a safe procedure. However, as with any procedure, complications can occur. Possible complications of epidural steroid injection include: Headache. Bleeding. Infection. Allergic reaction to the medicines. Damage to your nerves. The response to this procedure depends on the underlying cause of the pain and its duration. People who have long-term (chronic) pain are less likely to benefit from epidural steroids than are those people whose pain comes on strong and suddenly. BEFORE THE PROCEDURE Ask your health care provider about changing or stopping your regular medicines. You may be advised to stop taking blood-thinning medicines a few days before the procedure. You may be given medicines to reduce anxiety. Arrange for someone to take you home after the procedure. PROCEDURE You will remain awake during the procedure. You may receive medicine to make you relaxed. You will be asked to lie on your stomach. The injection site will be cleaned. The injection site will be numbed with a medicine (local anesthetic). A needle will be injected through your skin into the epidural space. Your health care provider will use an X-ray machine to ensure that the steroid is delivered closest to the affected nerve. You may have minimal discomfort at this time. Once the needle is in the right position, the local anesthetic and the steroid will be injected into the epidural space. The needle will then be removed and a bandage will be applied to the injection site. AFTER THE PROCEDURE You may be monitored for a short time before you go home. You may feel weakness or numbness in your arm or leg, which disappears within hours. You may be allowed to eat, drink, and take your regular medicine. You may have soreness at the site of the injection. This information is not intended to replace advice given to you by your health care provider. Make sure you discuss any questions you have with your health care provider. Document Released: 07/07/2008 Document Revised: 12/01/2013 Document Reviewed: 09/17/2013 [facility] Patient Information 2016 [employer], [facility]. No follow up information was provided.
--- NOTE | 2017-01-17 16:14 | Emergency Department Report ---
Chest Pain HPI - General Chief Complaint: Chest Pain <Roni Oliveros Q - 01/19/17 15:10> Stated Complaint: chest pain <Roni Oliveros Q - 01/19/17 15:10> Time Seen by Provider: 01/17/17 15:50 <Roni Oliveros Q - 01/19/17 15:10> Source: patient <Gisell Shaw 01/17/17 16:17> Mode of arrival: ambulatory <Gisell Shaw 01/17/17 16:17> Limitations: no limitations <Gisell Shaw 01/17/17 16:17> - History of Present Illness HPI narrative: Pt developed sudden onset of right sided chest pain which started about 0700 when he was brushing his teeth. Pain improved but then returned after eating lunch. Pt states pain has been consistently present but varies in intensity, especially after eating. Pt denies nausea, vomiting, SOA, or diaphoresis. <Gisell Shaw 01/17/17 16:17> MD complaint: chest pain <Gisell Shaw 01/17/17 16:17> Occurred At: home <Gisell Shaw 01/17/17 16:17> Onset (ago): hour(s) <Gisell Shaw 01/17/17 16:17> Duration: constant <Gisell Shaw 01/17/17 16:17> Onset: during rest, during exertion, after eating <Gisell Shaw 16:17> Pain location: right chest <Gisell Shaw 01/17/17 16:17> Severity: mild <Gisell Shaw 01/17/17 16:17> Quality: tightness <Gisell Shaw 01/17/17 16:17> Pain radiation: none <Gisell Shaw 01/17/17 16:17> Relieving factors: nothing <Gisell Shaw 01/17/17 16:17> Exacerbating factors: palpation, movement <Gisell Shaw 01/17/17 16:17 > - Related Data Home Medications Medication Instructions Recorded Confirmed Tacrolimus [Prograf] 2 mg PO BID #0 04/03/09 10/06/17 Aspirin Chewable [ASA] 81 mg PO DAILY 01/17/17 01/17/17 Dabigatran [Pradaxa] 150 mg PO BID 01/17/17 01/17/17 Multivit-Minerals/FA/Lycopene [One 1 tab PO DAILY 01/17/17 01/17/17 Daily Men's BranchOut Tablet] Previous Rx's Medication Instructions Recorded Nitroglycerin [Nitrostat] 0.4 mg SL Q5MIN3 PRN #25 tab 01/18/17 <Roni Oliveros Q - 01/19/17 15:10> Allergies Allergy/AdvReac Type Severity Reaction Status Date / Time zolmitriptan AdvReac Unknown MUSCLE PAIN Verified 01/17/17 18:33 <Roni Oliveros Q - 01/19/17 15:10> Review of Systems All systems: reviewed and negative except as stated <Gisell Shaw 09/28 16:17> ENT: Denies: throat pain <Gisell Shaw 01/17/17 16:17> Cardiovascular: Reports: chest pain. Denies: palpitations, dyspnea on exertion <Gisell Shaw 01/17/17 16:17> Respiratory: Denies: cough, dyspnea <Gisell Shaw 01/17/17 16:17> Gastrointestinal: Denies: nausea, vomiting, diarrhea <Gisell Shaw 09/28 16:17> Genitourinary: Denies: urgency <Gisell Shaw 01/17/17 16:17> Musculoskeletal: Denies: back pain <Gisell Shaw 01/17/17 16:17> Neurological: Denies: headache <Gisell Shaw 01/17/17 16:17> Psychiatric: Denies: anxiety <Gisell Shaw 01/17/17 16:17> Endocrine: Denies: fatigue <Gisell Shaw 01/17/17 16:17> [facility] Patient Stated Medical History Migraine Yes Cataracts Yes Hearing Loss Yes Cardiac Arrhythmia Yes: afib Other GI Yes: PSC Other Hematologic Yes: on pradaxa Other Musculoskeletal Yes: osteopenia <Roni Oliveros Q - 01/19/17 15:10> Patient Stated Medical History Migraine Yes Cataracts Yes Hearing Loss Yes Cardiac Arrhythmia Yes: afib Other GI Yes: PSC Other Hematologic Yes: on pradaxa Other Musculoskeletal Yes: osteopenia <Gisell Shaw 01/17/17 17:40> Physical Exam - Limitations Limitations: no limitations <Gisell Shaw 01/17/17 16:17> - General General appearance: alert, in no apparent distress <Gisell Shaw 01/17 16:17> - Normal Exams: Eyes:: Pupils are PERRLA w/ EOMI <Gisell Shaw 01/17/17 16:17> Neck:: Full range of motion, without adenopathy <Gisell Shaw 16:17> Chest/Respirations:: Clear all ochoa, with good airflow, and symmetry bilaterally <Gisell Shaw 01/17/17 16:17> Cardiovascular:: Regular rate and rhythm, without murmur or gallop, Pulses 2+ all extremities <Gisell Shaw 01/17/17 16:17> Abdomen:: Bowel sounds positive, soft, non-tender, non-distended <Gisell Shaw 01/17/17 16:17> Musculoskeletal:: No tenderness, or deformity noted, good range of motion, all extremities <Gisell Shaw 01/17/17 16:17> Integumentary:: No rashes <Gisell Shaw 01/17/17 16:17> Neurological:: Patient is alert, and oriented <Gisell Shaw 01/17/17 16:17> Psychiatric:: Patient exhibits, appropriate attention, emotion and affect < Gisell Shaw 01/17/17 16:17> Course - Consultations Consultation #1: [place] <Gisell Shaw 01/17/17 17:40> Time: 17:20 (pt to be admitted observation) <Gisell Shaw 01/17/17 17: 40> Vital Signs Temperature 98.0 F 01/17/17 15:44 Pulse Rate 64 01/17/17 15:44 Respiratory Rate 18 01/17/17 15:44 Blood Pressure 167/86 H 01/17/17 15:44 Pulse Oximetry 99 01/17/17 15:44 Temperature 98.0 F 01/18/17 11:36 Pulse Rate 56 L 01/18/17 17:12 Respiratory Rate 16 01/18/17 16:41 Blood Pressure 151/87 H 01/18/17 16:41 Pulse Oximetry 97 01/18/17 16:41 <Roni Oliveros Q - 01/19/17 15:10> Chest Pain - Differential Diagnosis Likely: stable angina, unstable angina pectoris, atypical chest pain, costochondritis, chest pain <Gisell Shaw - 01/17/17 16:17> - Lab Data Attestation: I reviewed the patient's lab results. <Gisell Shaw R - 01/17 17:40> Result diagrams: 01/17/17 16:25 01/17/17 16:25 <Roni Oliveros Q - 01/19/17 15:10> Lab Results 01/17/17 01/17/17 Range/Units 16:25 16:25 WBC 4.1 L (4.5-11.0) T/MM3 RBC 3.83 L (4.50-5.90) M/MM3 Hgb 12.2 L (13.5-17.5) GM/DL Hct 37.0 L (41-53) % MCV 96.6 (80-100) UM3 MCH 31.9 (26-34) UUG MCHC 33.0 (31-37) GM/DL RDW Std Deviation 42.7 (36.9-50.2) FL Plt Count 150 (130-400) T/MM3 MPV 11.8 (9.4-12.4) UM3 Immature Gran % (Auto) 0.0 (0.0-0.5) % Neut % (Auto) 71.5 H (33-66) % Lymph % (Auto) 17.2 L (23-45) % [place] % (Auto) 5.4 (0-9.0) % Eos % (Auto) 5.7 H (0-4) % Baso % (Auto) 0.2 (0-2) % Neut # (Auto) 2.9 (1.8-7.7) T/MM3 Lymph # (Auto) 0.7 L (1-4.8) T/MM3 [place] # (Auto) 0.2 (0-0.8) T/MM3 Eos # (Auto) 0.2 (0-0.5) T/MM3 Baso # (Auto) 0.0 (0-0.2) T/MM3 Abs Immat Gran (auto) 0.00 (0.00-0.03) T/MM3 Turbidity < 20 (0-20) Sodium 143 (134-144) MEQ/L Potassium 4.5 (3.6-5) MEQ/L Chloride 107 (98-107) MEQ/L Carbon Dioxide 24 (22-30) MEQ/L Anion Gap 12 (5-15) MEQ/L BUN 32.0 H (9-20) MG/DL Creatinine 1.1 (0.8-1.5) MG/DL GFR Calculation 64 BUN/Creatinine Ratio 29 H (6-26) RATIO Glucose 174 H (75-110) MG/DL Calculated Osmolality 286 H (261-280) MOSM/KG Calcium 9.2 (8.4-10.2) MG/DL Icterus Index < 2 (0-7) Troponin I 0.019 (0-0.12) ng/ml B-Natriuretic Peptide 703 H (0-175) pg/mL Specimen Hemolysis 21 (0-25) <Roni Oliveros Q - 01/19/17 15:10> Lab Results 01/17/17 01/17/17 Range/Units 16:25 16:25 WBC 4.1 L (4.5-11.0) T/MM3 RBC 3.83 L (4.50-5.90) M/MM3 Hgb 12.2 L (13.5-17.5) GM/DL Hct 37.0 L (41-53) % MCV 96.6 (80-100) UM3 MCH 31.9 (26-34) UUG MCHC 33.0 (31-37) GM/DL RDW Std Deviation 42.7 (36.9-50.2) FL Plt Count 150 (130-400) T/MM3 MPV 11.8 (9.4-12.4) UM3 Immature Gran % (Auto) 0.0 (0.0-0.5) % Neut % (Auto) 71.5 H (33-66) % Lymph % (Auto) 17.2 L (23-45) % [place] % (Auto) 5.4 (0-9.0) % Eos % (Auto) 5.7 H (0-4) % Baso % (Auto) 0.2 (0-2) % Neut # (Auto) 2.9 (1.8-7.7) T/MM3 Lymph # (Auto) 0.7 L (1-4.8) T/MM3 [place] # (Auto) 0.2 (0-0.8) T/MM3 Eos # (Auto) 0.2 (0-0.5) T/MM3 Baso # (Auto) 0.0 (0-0.2) T/MM3 Abs Immat Gran (auto) 0.00 (0.00-0.03) T/MM3 Turbidity < 20 (0-20) Sodium 143 (134-144) MEQ/L Potassium 4.5 (3.6-5) MEQ/L Chloride 107 (98-107) MEQ/L Carbon Dioxide 24 (22-30) MEQ/L Anion Gap 12 (5-15) MEQ/L BUN 32.0 H (9-20) MG/DL Creatinine 1.1 (0.8-1.5) MG/DL GFR Calculation 64 BUN/Creatinine Ratio 29 H (6-26) RATIO Glucose 174 H (75-110) MG/DL Calculated Osmolality 286 H (261-280) MOSM/KG Calcium 9.2 (8.4-10.2) MG/DL Icterus Index < 2 (0-7) Troponin I 0.019 (0-0.12) ng/ml B-Natriuretic Peptide 703 H (0-175) pg/mL Specimen Hemolysis 21 (0-25) <Gisell Shaw R - 01/17/17 17:40> - Radiology Data Attestation: I reviewed the patient's radiology results. <Gisell Shaw - 01/17/17 17:40> - EKG Data EKG #1 EKG attestation: Yes: I reviewed and interpreted this EKG. 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 <Ward Oliverosn Q - 01/19/17 15:10> 1st Degree <Gisell Shaw R - 01/17/17 17:40> Interpretation: no acute changes <Roni Oliveros Q - 01/19/17 15:10> Disposition Clinical Impression: Atypical chest pain <Roni Oliveros Q - 01/19/17 15:10> Disposition: 02 [place] [facility] <Roni Oliveros Q - 01/19/17 15:10> Condition: Improved <Roni Oliveros Q - 01/19/17 15:10> Instructions: <Roni Oliveros Q - 01/19/17 15:10> Prescriptions: New Nitroglycerin [Nitrostat] 0.4 mg SL Q5MIN3 PRN #25 tab PRN Reason: Chest Pain Continue Tacrolimus [Prograf] 2 mg PO BID #0 Multivit-Minerals/FA/Lycopene [One Daily Men's Health Tablet] 1 tab PO DAILY Dabigatran [Pradaxa] 150 mg PO BID Aspirin Chewable [ASA] 81 mg PO DAILY <Roni Oliveros Q - 01/19/17 15:10> Referrals: Cuong Sultana MD [Family Provider] - <Roni Oliveros Q - 11/28 15:10> Forms: <Roni Oliveros Q - 01/19/17 15:10> Time of Disposition: 17:40 <Gisell Shaw - 01/17/17 17:40> - Seen By: midlevel <Gisell Shaw - 01/17/17 17:40>
--- NOTE | 2017-01-17 16:59 | XRay Report ---
INDICATION: chest pain PROCEDURE: CHEST 2-VIEWS UPRIGHT (PA & LAT) Encounter: Initial COMPARISON: July 15, 2008 FINDINGS: The lungs are clear without evidence of focal abnormal airspace opacity. There is no pleural effusion or pneumothorax. Calcified granulomas. The heart size, mediastinal contours and pulmonary vascularity are within normal limits. There is no significant skeletal abnormality. IMPRESSION: No acute cardiopulmonary disease. .
[2017-01-17] MEDS ORDERED: MAG-AL + SIM ORAL LIQUID 30ml PO PRN (19:53)
[2017-01-17] MEDS ORDERED: CALCIUM CARBONATE Chewable 500mg TABLET PO PRN (19:53)
[2017-01-17] MEDS ORDERED: ONDANSETRON 4 MG/2 ML INJECTION IVP PRN (19:54)
[2017-01-17] MEDS ORDERED: ACETAMINOPHEN 325 MG TABLET PO PRN (19:55)
[2017-01-17] MEDS: FAMOTIDINE 20 MG TABLET PO SCH (21:17)
[2017-01-17] MEDS: TACROLIMUS 1 MG CAPSULE PO SCH (21:17)
[2017-01-17] MEDS: SALINE FLUSH 10ml SYRINGE IVF PRN (21:27)
[2017-01-18] MEDS: SALINE FLUSH 10ml SYRINGE IVF PRN (06:08)
[2017-01-18] MEDS: FAMOTIDINE 20 MG TABLET PO SCH (08:57)
[2017-01-18] MEDS ORDERED: ASPIRIN 81 MG CHEWABLE TABLET PO SCH (09:00)
[2017-01-18] MEDS: TACROLIMUS 1 MG CAPSULE PO SCH (09:04)
[2017-01-18 11:39] VITALS: TEMP 98; O2SAT 97
[2017-01-18 16:41] VITALS: BP 151/87; RESP 16
[2017-01-18 17:37] VITALS: PULSE 56
--- NOTE | 2017-01-18 19:42 | Cardiology History & Physical ---
History of Present Illness Chief complaint: Right sided chest pain HPI: This is an 81 year old patient known to Dr. Barfield for PAF, s/p ablations x2 , GERD, and liver transplant 15 [address] Barfield regularly and had a negative nulcear stress test about a yr ago. He has no known CAD. He takes Paradaxa and ASA per Dr. Barfield for A-fib. Today about 0700 he developed a sudden onset of chest pain in the right side of his chest while brushing his teeth. The pain subsided some. The pain returned after he ate. Denies radiation of the chest pain. Denies SOB, N/V/D/C, fever chills, abdominal pain. or diaphoresis. The pain does not completely go away. He states recently every time he eats he feels food gets stuck in his esophagus and he has to drink a lot of water to get the food down. Then he can feel it going down his esophagus. He admits to not chewing his food well. He states the pain came back after eating again and he decided to come to the ER. In ER: ECG: NSR, 1st degree AVB. Trop 0.019 (0-0.12), which is negative. He was given a Ntg sl for some relief. Dr. Barfield was contacted and admitted pt for OBS. Review of Systems - Constitutional Constitutional: Absent: chills, fever(s), weakness - EENMT Eyes: Absent: change in vision Balance: Absent: vertigo Mouth/Throat: Absent: sore throat - Cardiovascular Cardiovascular: Present: chest pain. Absent: palpitations, syncope, dyspnea on exertion, orthopnea, edema Vascular: Absent: pedal edema - Respiratory Respiratory: Absent: cough, dyspnea - Gastrointestinal Gastrointestinal: Absent: abdominal pain, constipation, melena, nausea, vomiting Gastrointestinal Comments: He feels like food gets stuck in his throat. - Genitourinary Genitourinary: Absent: dysuria - Musculoskeletal Musculoskeletal: Absent: back pain - Neurological Neurological: Absent: dizziness - Psychiatric Psychiatric: Absent: anxiety, depression - Endocrine Endocrine: Present: change in libido. Absent: cold intolerance, palpitations - Hematologic/Lymphatic Hematologic/Lymphatic: Absent: easy bleeding - Allergic/Immunologic Allergic/Immunologic: Absent: tongue swelling, throat swelling [facility] Patient Stated Medical History Migraine Yes Cataracts Yes: REMOVAL BILATERAL Hearing Loss Yes: JAYMIE. HEARING AIDES Cardiac Arrhythmia Yes: afib Other GI Yes: PSC Other Hematologic Yes: on pradaxa Other Musculoskeletal Yes: osteopenia PAF s/p ablations x2. Liver transplant 15 yrs ago. Family History: no CAD - Social History Smoking status: Never smoker Substance use type: does not use Alcohol intake frequency: does not drink Household members: spouse Current occupational status: retired Does patient use chewing tobacco?: No Current residence: Apartment/Private Home Medications Home Medications Medication Instructions Recorded Confirmed Type Tacrolimus [Prograf] 2 mg PO BID #0 07/15/08 01/17/17 History Aspirin Chewable [ASA] 81 mg PO DAILY 01/17/17 01/17/17 History Dabigatran [Pradaxa] 150 mg PO BID 01/17/17 01/17/17 History Multivit-Minerals/FA/Lycopene [One 1 tab PO DAILY 01/17/17 01/17/17 History Daily Men's X[employer] Games Tablet] Allergies Allergy/AdvReac Type Severity Reaction Status Date / Time zolmitriptan AdvReac Unknown MUSCLE PAIN Verified 01/17/17 18:33 Exam Vital signs: Temperature 98.0 F 01/18/17 11:36 Pulse Rate 56 L 01/18/17 17:12 Respiratory Rate 16 01/18/17 16:41 Blood Pressure 151/87 H 01/18/17 16:41 Pulse Oximetry 97 01/18/17 16:41 - Constitutional no acute distress, thin, cooperative - Routine HEENT Exam Head: Present: normocephalic, atraumatic ENT: Present: mucous membranes moist - Routine Neck Exam Absent: JVD, carotid bruit - Routine Chest/Breast/Axilla Exam Chest wall: Absent: tenderness - Routine Respiratory Exam Present: CTA bilaterally - Routine Cardiovascular Exam Present: RRR, no murmur - Routine Abdominal Exam Present: soft, normoactive bowel sounds, non distended, non tender - Routine Extremities Exam Present: no edema, pulses intact - Routine Back/Spine/Pelvis Exam Back/Spine: Present: full ROM - Routine Skin Exam Present: intact, dry - Routine Neurological Exam Present: alert, oriented X3, moving all extremities, vision grossly intact, hearing grossly intact - Routine Psychiatric Exam Present: normal affect, normal thought process, cooperative, good insight Results 01/17/17 16:25 01/17/17 16:25 Cardiac Enzymes 01/17/17 01/18/17 Range/Units 22:36 04:25 Troponin I 0.022 0.021 (0-0.12) ng/ml Intake and Output 01/18/17 01/18/17 01/18/17 06:59 14:59 22:59 Intake Total 200 / 200 100 / 100 Output Total 600 / 600 450 / 450 Balance 200 / 200 -500 / -500 -450 / -450 Intake: Oral 200 / 200 100 / 100 Output: Urine 600 / 600 450 / 450 Other: Urine Appearance Clear Clear Urine Color Yellow Pale Weight 149 lb 0.52 oz Patient Weight 01/19/17 06:59 Weight 149 lb 0.52 oz Laboratory Tests 01/17/17 01/17/17 01/17/17 16:25 16:25 22:36 WBC 4.1 L RBC 3.83 L Hgb 12.2 L Hct 37.0 L MCV 96.6 MCH 31.9 MCHC 33.0 RDW Std Deviation 42.7 Plt Count 150 MPV 11.8 Immature Gran % (Auto) 0.0 Neut % (Auto) 71.5 H Lymph % (Auto) 17.2 L Garfield % (Auto) 5.4 Eos % (Auto) 5.7 H Baso % (Auto) 0.2 Neut # (Auto) 2.9 Lymph # (Auto) 0.7 L Garfield # (Auto) 0.2 Eos # (Auto) 0.2 Baso # (Auto) 0.0 Abs Immat Gran (auto) 0.00 Turbidity < 20 Sodium 143 Potassium 4.5 Chloride 107 Carbon Dioxide 24 Anion Gap 12 BUN 32.0 H Creatinine 1.1 GFR Calculation 64 BUN/Creatinine Ratio 29 H Glucose 174 H Calculated Osmolality 286 H Calcium 9.2 Magnesium 1.8 Icterus Index < 2 Troponin I 0.019 0.022 B-Natriuretic Peptide 703 H TSH 8.40 H Specimen Hemolysis 21 < 15 - Imaging and Cardiology Imaging & Cardiology Narrative: 01/17/2017 CXR FINDINGS: The lungs are clear without evidence of focal abnormal airspace opacity. There is no pleural effusion or pneumothorax. Calcified granulomas. The heart size, mediastinal contours and pulmonary vascularity are within normal limits. There is no significant skeletal abnormality. IMPRESSION: No acute cardiopulmonary disease. - EKG Interpretation EKG: sinus rhythm Hospital Course This is a general summary of the patient's hospital course. For more details refer to the complete medical record. Assessment and Plan - Attestation Attestation Narrative: 01/20/17 13:29 Recommendation After examining the patient I agree with the above assessment. I am involved in the formulation of the patient's plan of care. - Assessment and Plan (1) Atypical chest pain Status: Acute Chest pain is constant over the last 8 hrs. It has not gone away. Trop are negative, he states he had a negative stress test last yr. ECG NSR with 1st degree AVB, no acute ischemia Serial trop and ecg in am. ASA. (2) PAF (paroxysmal atrial fibrillation) Status: Chronic Currently in SR. s/p ablations x2 cont Pradaxa. (3) Swallowing disorder Status: Acute He feels he gets food stuck in his esophagus every time he eats food and has to drink a lot of water to get it down. No problem drinking fluids. This is likely causing his right sided chest pain.
--- NOTE | 2017-01-18 19:52 | Discharge Summary ---
Discharge Information Date of admission: 01/17/17 17:37 <Theron Barfield - 01/20/17 13:28> 01/17/17 17:37 <Kristen Washington - 01/18/17 19:52> Anticipated date of discharge: 01/18/17 <Kristen Washington - 01/18/17 19:52> Attending Physician: Theron Barfield MD <Theron Barfield - 01/20/17 13:28> Theron Barfield MD <Kristen Washington - 01/18/17 19:52> Primary care physician: Cuong Sultana MD <Theron Barfield - 01/20/17 13:28> Cuong Sultana MD <Kristen Washington - 01/18/17 19:52> - Discharge Diagnosis - Laboratory Labs: 01/17/17 01/17/17 01/18/17 16:25 22:36 04:25 Turbidity < 20 Sodium 143 Potassium 4.5 Chloride 107 Carbon Dioxide 24 Anion Gap 12 BUN 32.0 H Creatinine 1.1 GFR Calculation 64 BUN/Creatinine Ratio 29 H Glucose 174 H Calculated Osmolality 286 H Calcium 9.2 Magnesium 1.8 Icterus Index < 2 Troponin I 0.019 0.022 0.021 B-Natriuretic Peptide 703 H TSH 8.40 H Specimen Hemolysis 21 < 15 < 15 01/17/17 16:25 WBC 4.1 L RBC 3.83 L Hgb 12.2 L Hct 37.0 L MCV 96.6 MCH 31.9 MCHC 33.0 RDW Std Deviation 42.7 Plt Count 150 MPV 11.8 Immature Gran % (Auto) 0.0 Neut % (Auto) 71.5 H Lymph % (Auto) 17.2 L Whitley % (Auto) 5.4 Eos % (Auto) 5.7 H Baso % (Auto) 0.2 Neut # (Auto) 2.9 Lymph # (Auto) 0.7 L Whitley # (Auto) 0.2 Eos # (Auto) 0.2 Baso # (Auto) 0.0 Abs Immat Gran (auto) 0.00 <Kristen Washingtno - 01/18/17 21:08> - Radiology Radiology: Laboratory CXR: not acute. <Kristen Washington - 01/18/17 21:08> History of Present Illness HPI: 01/18/17 21:08 This is an 81 year old patient known to Dr. Barfield for PAF, s/p ablations x2 , GERD, and liver transplant 15 yrs ago[address] He sees Dr. Barfield regularly and had a negative nulcear stress test about a yr ago. He has no known CAD. He takes Paradaxa and ASA per Dr. Barfield for A-fib. Today about 0700 he developed a sudden onset of chest pain in the right side of his chest while brushing his teeth. The pain subsided some. The pain returned after he ate. Denies radiation of the chest pain. Denies SOB, N/V/D/C, fever chills, abdominal pain. or diaphoresis. The pain does not completely go away. He states recently every time he eats he feels food gets stuck in his esophagus and he has to drink a lot of water to get the food down. Then he can feel it going down his esophagus. He admits to not chewing his food well. He states the pain came back after eating again and he decided to come to the ER. In ER: ECG: NSR, 1st degree AVB. Trop 0.019 (0-0.12), which is negative. He was given a Ntg sl for some relief. Dr. Barfield was contacted and admitted pt for OBS. <Kristen Washington - 01/18/17 21:16> Hospital Course This is a general summary of the patient's hospital course. For more details refer to the complete medical record. <Theron Barfield - 01/20/17 13:28> This is a general summary of the patient's hospital course. For more details refer to the complete medical record. Trop negative x3. ECG no acute ischemia. CP is likely GI. DC in good condition. F/U with Dr. Barfield. He did c/o rt sided CP at 0300 and he declined Ntg. He took mallox, Tums and pepcid for not change in pain. The pain was constant 2/10 except when he eats it worsens. he want s to go home and will f/u Friday with PCP. <Kristen Washington - 01/18/17 21:16> Time spent with patient: 25 - 35 minutes <Kristen Washington - 01/18/17 21:16> Discharge Plan - Med Rec/Dispo Referrals/Follow Up: Cuong Sultana MD [Family Provider] - <Theron Barfield - 01/20/17 13:28> Agustinuvkrys Instructions: Chest Pain (DC) <Theron Barfield - 01/20/17 13:28> Prescriptions: New Nitroglycerin [Nitrostat] 0.4 mg SL Q5MIN3 PRN #25 tab PRN Reason: Chest Pain Continue Tacrolimus [Prograf] 2 mg PO BID #0 Multivit-Minerals/FA/Lycopene [One Daily Men's Health Tablet] 1 tab PO DAILY Dabigatran [Pradaxa] 150 mg PO BID Aspirin Chewable [ASA] 81 mg PO DAILY <Theron Barfield - 01/20/17 13:28> - Disposition 01 Discharged Home, Self-Care <Theron Barfield - 01/20/17 13:28> - Attestation Attestation Narrative: 01/20/17 13:28 Recommendation After examining the patient I agree with the above assessment. I am involved in the formulation of the patient's plan of care. <Theron Barfield - 01/20/17 13:28>
--- NOTE | 2017-01-18 20:02 | Discharge Instructions ---
<Kristen Washington - Last Filed: 01/18/17 20:03> Discharge Plan - Med Rec/Dispo Referrals/Follow Up: Cuong Sultana MD [Family Provider] - [facility] Instructions: Chest Pain (DC) Prescriptions: New Nitroglycerin [Nitrostat] 0.4 mg SL Q5MIN3 PRN #25 tab PRN Reason: Chest Pain Continue Tacrolimus [Prograf] 2 mg PO BID #0 Multivit-Minerals/FA/Lycopene [One Daily Men's Health Tablet] 1 tab PO DAILY Dabigatran [Pradaxa] 150 mg PO BID Aspirin Chewable [ASA] 81 mg PO DAILY - Disposition 01 Discharged Home, Self-Care <Theron Barfield - Last Filed: 01/20/17 13:28> Discharge Plan - Med Rec/Dispo - Attestation Attestation Narrative: 01/20/17 13:28 Recommendation After examining the patient I agree with the above assessment. I am involved in the formulation of the patient's plan of care.
== END 2017-01-18 20:15 | disposition home or self-care (01) ==
LOC: ED 15:42 → SRG 15:42
PROVIDERS: ADMIT Internal Medicine Cardiovascular Disease; ATTEND Internal Medicine Cardiovascular Disease